=== PATIENT | male | born 1950 | race Caucasian/White ===

== ENCOUNTER 2019-04-24 10:37 | Inpatient (IN) | payer MEDICARE ==
--- NOTE | 2019-04-19 12:45 | NUR ---
Pt arrived in general good physical health for interview of scheduled procedure. Review of medical history and current medications. Procedural consent, pre-op orders, and Hibiclens bath education completed. All questions clarified and or answered where appropriate. pt verbalizes understanding to include day of procedure expectations. Contacted Adwoa @ [facility]. physicians office has already collected all blood specimens needed. lab draw cx for procedure- cgf
[~2019-04-24] VITALS: Ht 203.2 cm; Wt 120.2 kg
[2019-04-24] VITALS (16 sets, daily range): BP systolic 113–152; BP diastolic 67–91
--- OUTSIDE RECORDS SUMMARY | 2019-04-24 10:43 | XMS REPORT ---
Author Author [facility] Address Unknown Phone Unavailable Care Team Providers Care Salsa Dance Instructor Name Role Phone Unavailable Unavailable Payers Payer Name Policy Type Policy Number Effective Date Expiration Date Problems This patient has no known problems. Allergies, Adverse Reactions, Alerts This patient has no known allergies or adverse reactions. Medications This patient has no known medications.
[2019-04-24] MEDS ORDERED: DIPHENHYDRAMINE HCL 25 MG CAP ONE (11:00)
[2019-04-24] MEDS ORDERED: ALPRAZOLAM 0.5 MG TAB ONE (11:00)
--- NOTE | 2019-04-24 11:00 | NUR ---
pt in CCL 9, prepped for procedure. Alert oriented and appropriate, PERRLA, respirations even and unlabored to room air. Pulses x4 extremities equal and palpable, weak. Cap fill brisk < 3 sec. Skin warm and dry integrity appears intact in general. IV 20g started to left forearm x1 attempt and presents healthy w/o s/s of infiltration or complaint. Abdomen soft and supple. pt offered toileting, denies need to urinate or defecate. Personal affects with patient. Family not available. Pt verbalizes understanding of POC. Pre-Op Meds benadryl and xanax given. bed low and locked, side rails up x2 and call light at side. [place] [place]
[2019-04-24] MEDS ORDERED: HEPARIN SOD/SOD CHLORIDE 2,000 ML ONE (11:46)
[2019-04-24] MEDS ORDERED: LIDOCAINE HCL 2% LOCAL 20 ML VIAL ONE (11:46)
[2019-04-24] MEDS ORDERED: FENTANYL CITRATE/PF 100MCG/2 ML INJ ONE (11:46)
[2019-04-24] MEDS ORDERED: MIDAZOLAM HCL 2 MG/2 ML VIAL ONE (11:46)
[2019-04-24] MEDS ORDERED: SODIUM CHLORIDE 0.9% 1000ML 1,000 ML ONE ×2 (11:47→15:25)
[2019-04-24] MEDS ORDERED: IOPAMIDOL 370 MG/ML 200 ML INFUS..BTL INJ ONE ×2 (11:47→11:55)
[2019-04-24] MEDS ORDERED: BIVALRIUDIN 250 MG/VIAL VIAL IV ONE (12:19)
[2019-04-24] MEDS ORDERED: SODIUM CHLORIDE 0.9% 50ML 50 ML ONE (12:20)
[2019-04-24] MEDS ORDERED: ASPIRIN 325 MG TAB ONE (12:28)
[2019-04-24] MEDS ORDERED: PRASUGREL 10 MG TAB ONE (12:28)
--- NOTE | 2019-04-24 16:25 | NUR ---
PT RECEIVED FROM COP BREAKER. AAOX4. PT LYING ON BED. NO DISTRESS NOTED. EDUCATED PT ABOUT FALL PRECAUTIONS. CALL LIGHT WITH IN EASY REACH. INSTRUCTED PT TO USE CALL LIGHT FOR ALL THE NEEDS. PT VERBALIZED UNDERSTANDING. BED IS LOW AND LOCKED. SIDE RAILS X2. BED ALARM IS ON. PT DENIES NEEDS AT THIS TIME.
--- NOTE | 2019-04-24 17:30 | NUR ---
PAGED DR. ALVAREZ REGARDING PT MEDS AND DIET.
--- NOTE | 2019-04-24 18:15 | NUR ---
CONSENT SIGNED PER DR. ALVAREZ. PT CAN TAKE HOME MEDS PER THE
--- NOTE | 2019-04-24 18:30 | NUR ---
MED RECONCILIATION NOT COMPLETED SINCE PT DOESN'T KNOW THE MEDICINES HE TAKES. FAMILY MEMBER WILL BRING THE MEDS TONIGHT TO REVIEW PER THE PT.
--- NOTE | 2019-04-24 19:00 | NUR ---
BEDSIDE SHIFT REPORT GIVEN TO THE LATENT FINGERPRINT EXAMINER RN. PT DENIED FURTHER NEEDS.
--- NOTE | 2019-04-24 19:20 | NUR ---
RECEIVED PATIENT. PATIENT IS RESTING IN BED FLAT, S/P LEFT HEAR CATH, RIGHT GROIN DRESSING NOTED, DRY AND INTACT, NO S/S OF BLEEDING. PATIENT IS AAOX3. RESP EVEN AND UNLABORED. NO ACUTE DISTRESS NOTED. BED LOW/LOCKED. CONTINUE TO MONITOR CLOSELY
--- NOTE | 2019-04-24 21:05 | Operative Report ---
DATE OF PROCEDURE: 04/24/2019 SURGEON: Mathew Madison MD INDICATION: Coronary artery disease, abnormal stress test, congestive heart failure. PROCEDURES PERFORMED: 1. Left heart catheterization, selective coronary angiography. 2. Selective cannulation of 1 arterial and 3 venous bypass conduit. 3. PTCA and stent placement of the circumflex/ramus intermedius branch of the left coronary system. COMPLICATIONS: None. RECOMMENDATIONS: Staged intervention on the left main and ostial circumflex lesion, staged intervention on the right coronary artery with atherectomy, staged intervention for peripheral arterial disease. BLOOD LOSS: Minimal. Dual antiplatelet therapy for life. DESCRIPTION OF PROCEDURE: Access was obtained in the right femoral artery. A 6-Slovak sheath was placed. Coronary angiography demonstrated patent left main. Left anterior descending artery is occluded in its proximal portion. Ramus intermedius proximal 90% stenosis, circumflex ostial 80% to 90%, proximal 80% to 90% stenosis. Right coronary artery tandem 90% stenosis in its proximal midportion. Left internal mammary artery bypass to the left anterior descending artery is widely patent. Left subclavian artery stent was widely patent. Saphenous vein bypass with 3 stumps were identified and these were completely occluded. A decision was made to intervene on the ramus intermedius branch of the circumflex artery. The patient received Angiomax and oral Effient and aspirin for anticoagulation. The left main was cannulated using an XB 4.06-Slovak guiding catheter. A short run-through wire was advanced across the lesion. Predilatation with 2 mm balloon following which a single 2.25 x 16 mm Synergy stent was deployed at 18 atmospheres. Excellent end result, less than 10% residual stenosis. Adequate flow remained in the circumflex artery. The sheath was secured in place for removal under manual pressure. The patient was observed in the hospital overnight for staged intervention. Mathew Madison MD KSB/MODL /[id number]
[2019-04-25] VITALS (20 sets, daily range): BP systolic 85–167; BP diastolic 43–81
[2019-04-25] MEDS ORDERED: LOSARTAN POTASS25 MG PO (03:16)
[2019-04-25] MEDS ORDERED: CRESTOR10 MG PO (03:16)
[2019-04-25] MEDS ORDERED: METOPROLOL TART50 MG PO (03:16)
[2019-04-25] MEDS ORDERED: ENTRESTO 24 MG1 EACH PO (03:16)
[2019-04-25] MEDS ORDERED: NAPROXEN250 MG PO (03:19)
[2019-04-25] MEDS ORDERED: FUROSEMIDE40 MG PO (03:19)
--- NOTE | 2019-04-25 07:00 | NUR ---
BEDSIDE SHIFT REPORT RECEIVED FROM THE POWER PLANT ELECTRICIAN RN. EDUCATED PT ABOUT FALL PRECAUTIONS. CALL LIGHT WITH IN EASY REACH. INSTRUCTED PT TO USE CALL LIGHT FOR ALL THE NEEDS. PT VERBALIZED UNDERSTANDING. BED IS LOW AND LOCKED. SIDE RAILS X2. PT DENIES NEEDS AT THIS TIME.
[2019-04-25] MEDS ORDERED: MIDAZOLAM HCL 2 MG/2 ML VIAL ONE ×2 (08:32→09:11)
[2019-04-25] MEDS ORDERED: HEPARIN SOD (PORCINE) 1000 UNIT/ML 30ML ONE (08:32)
[2019-04-25] MEDS ORDERED: VERAPAMIL HCL 2.5 MG/ML 2 ML VIAL ONE (08:32)
--- NOTE | 2019-04-25 08:32 | NUR ---
PT OFF UNIT FOR PROCEDURE IN SAFE CONDITION. PT BLOOD SUGAR CHECKED. 152 NOTED.
[2019-04-25] MEDS ORDERED: LIDOCAINE HCL 2% LOCAL 20 ML VIAL ONE (08:33)
[2019-04-25] MEDS ORDERED: HEPARIN SOD/SOD CHLORIDE 2,000 ML ONE (08:33)
[2019-04-25] MEDS ORDERED: IOPAMIDOL 370 MG/ML 200 ML INFUS..BTL INJ ONE (08:33)
[2019-04-25] MEDS ORDERED: FENTANYL CITRATE/PF 100MCG/2 ML INJ ONE (08:33)
[2019-04-25] MEDS ORDERED: NITROGLYCERIN/D5W 200 MCG/ML 250 ML ONE (08:34)
[2019-04-25] MEDS ORDERED: SODIUM CHLORIDE 0.9% 1000ML 1,000 ML ONE (08:34)
[2019-04-25] MEDS ORDERED: SODIUM CHLORIDE 0.9% 50ML 50 ML ONE (08:35)
[2019-04-25] MEDS ORDERED: BIVALRIUDIN 250 MG/VIAL VIAL IV ONE (08:46)
[2019-04-25] MEDS ORDERED: PHENYLEPHRINE HCL 1% 10 MG/ML VIAL ONE (09:22)
[2019-04-25] MEDS ORDERED: SODIUM CHLORIDE 0.9% 100 ML ONE (09:23)
[2019-04-25] MEDS: SODIUM CHLORIDE 0.9% 1000ML 1,000 ML IV SCH ×2 (09:35→21:58)
[2019-04-25] MEDS ORDERED: PRASUGREL 10 MG TAB ONE (09:39)
[2019-04-25] MEDS ORDERED: ASPIRIN 325 MG TAB ONE (09:39)
[2019-04-25] MEDS ORDERED: ACETAMINOPHEN 325 MG TAB PO PRN (09:45)
[2019-04-25] MEDS ORDERED: HYDROCODONE/APAP 5MG-325MG TAB PO PRN (09:45)
[2019-04-25] MEDS ORDERED: ONDANSETRON HCL INJ 2MG/ML 2ML 2 MG/ML VIAL IV PRN (09:45)
[2019-04-25] MEDS ORDERED: MORPHINE SULFATE INJ 4 MG/ML INJ 1ML IV PRN (09:45)
--- NOTE | 2019-04-25 10:30 | NUR ---
CALL RECEIVED FROM ASSOCIATE PROGRAM MANAGER. PT TRANSFERRED TO ICU PER ASSOCIATE PROGRAM MANAGER.
--- NOTE | 2019-04-25 10:49 | Progress Note ---
DATE: 04/25/2019 Cardiology Progress Note SUBJECTIVE: Mr. Ray has no chest pain. His groin has healed well from his procedure yesterday. PHYSICAL EXAMINATION: VITAL SIGNS: Afebrile, heart rate 63, blood pressure 114/60, O2 sats 95%. CARDIOVASCULAR: Regular rhythm, systolic murmur. S3 gallop. LUNGS: Clear to auscultation bilaterally. ABDOMEN: Right groin is soft. EXTREMITIES: Pedal pulses are trace positive. LABORATORY DATA: Labs are pending. TELEMETRY: Shows paced rhythm. ASSESSMENT: 1. Unstable angina, status post ramus intermedius branch coronary intervention. 2. Chronic systolic heart failure. PLAN: Mr. Ray is being taken back to the cath laboratory technician for intervention in his left main and circumflex coronary artery. Risks, benefits, alternatives of the procedure were discussed with the patient. He is agreeable for the same. He will require ICU post procedure for monitoring. MD SHANNEN Urban/MERNA /[id number]
[2019-04-25 11:08] LABS: BASOPHILS % 0.5 % (0.0-1.0); EOSINOPHILS # (AUTO) 0.1 (0.0-0.4); EOSINOPHILS % 1.7 % (0.0-6.0); HEMATOCRIT 39.9 % (38.2-49.6); HEMOGLOBIN 13.1 g/dL (14.0-18.0); LYMPHOCYTES # (AUTO) 1.5 (1.0-3.2); LYMPHOCYTES % 19.8 % (18.0-39.1); MEAN CORPUSCULAR HGB CONC 32.8 g/dL (31-35); MEAN CORPUSCULAR VOLUME 91.5 fL (81-99); MONOCYTES # (AUTO) 0.6 (0.2-0.8); NEUTROPHILS # (AUTO) 5.3 (2.1-6.9); NEUTROPHILS % 69.7 % (38.7-80.0); PLATELET COUNT 213 x10e3/uL (140-360); RED BLOOD COUNT 4.36 x10e6/uL (4.3-5.7); RED CELL DISTRIBUTION WIDTH 12.7 % (11.7-14.4)
[2019-04-25 11:25] LABS: CREATININE, SERUM 1.5 mg/dL (0.72-1.25)
--- NOTE | 2019-04-25 12:15 | NUR ---
TRANSFER REPORT GIVEN TO ICU NURSE. PT IS STILL AT AIRPORT SECURITY SCREENER.
--- NOTE | 2019-04-25 12:50 | NUR ---
Report rec'd from Ena, Car Spotter. Patient to Room 191 at 1253, nauseated and vomiting. Zofran administered. Right femoral site is free of drainage and no signs of hematoma or bleeding.
[2019-04-25] MEDS ORDERED: ONDANSETRON HCL INJ 2MG/ML 2ML 2 MG/ML VIAL ONE (13:07)
[2019-04-25] MEDS: METOPROLOL TARTRATE 50 MG TAB PO SCH (16:18)
[2019-04-25] MEDS: VALSARTAN/SACUBITRIL 24MG/26MG 1 EA TAB PO SCH (16:18)
--- NOTE | 2019-04-25 16:37 | Operative Report ---
DATE OF PROCEDURE: 04/25/2019 SURGEON: Mathew Madison MD INDICATION: Coronary artery disease, unstable angina, congestive heart failure. PROCEDURES PERFORMED: 1. Left heart catheterization, selective coronary angiography. 2. PTCA and stent placement in the left main and left circumflex coronary artery. COMPLICATIONS: None. RECOMMENDATIONS: Dual antiplatelet therapy for life, staged intervention of the right coronary. DESCRIPTION OF PROCEDURE: Access obtained in the right femoral artery. A 6-Malawian sheath was placed. Angiomax was administered for anticoagulation. Oral Effient and aspirin was administered. Left main was cannulated using an XB 4.0, 6-Malawian guiding catheter. A short run-through wire was advanced across the 90% stenosis in the ostial circumflex and proximal circumflex into the distal vessel for support. Predilatation with 2 mm balloon following which 2 overlapping 2.5 x 16 and 3.5 x 12 mm Synergy stents were deployed. Both proximal stents were post dilated with a 3.75 mm balloon. Excellent end result, less than 10% residual stenosis, HANK-3 flow in the entire circumflex system. No complications. Wire and guide sheath were removed. Sheath secured in place for removal under manual pressure. The patient transferred to ICU in stable condition. MD SHANNEN Urban/MODL /[id number]
[2019-04-25] MEDS ORDERED: ZOLPIDEM TARTRATE 5 MG TAB PO PRN (21:00)
[2019-04-25] MEDS ORDERED: SIMVASTATIN 20 MG TAB PO SCH (21:00)
[2019-04-26] VITALS (23 sets, daily range): BP systolic 89–150; BP diastolic 49–87
[2019-04-26 05:21] LABS: BASOPHILS % 0.4 % (0.0-1.0); EOSINOPHILS # (AUTO) 0.2 (0.0-0.4); EOSINOPHILS % 2.3 % (0.0-6.0); HEMATOCRIT 36.4 % (38.2-49.6); LYMPHOCYTES # (AUTO) 2.1 (1.0-3.2); MEAN CORPUSCULAR HEMOGLOBIN 29.9 pg (28-32); MEAN CORPUSCULAR VOLUME 90.8 fL (81-99); MONOCYTES # (AUTO) 1.2 (0.2-0.8); MONOCYTES % 14.9 % (4.4-11.3); NEUTROPHILS # (AUTO) 4.8 (2.1-6.9); NEUTROPHILS % 57.2 % (38.7-80.0); PLATELET COUNT 198 x10e3/uL (140-360); RED BLOOD COUNT 4.01 x10e6/uL (4.3-5.7); RED CELL DISTRIBUTION WIDTH 12.6 % (11.7-14.4)
[2019-04-26 05:40] LABS: CALCIUM 8.4 mg/dL (8.4-10.2); CREATININE, SERUM 1.22 mg/dL (0.72-1.25)
[2019-04-26] MEDS: SODIUM CHLORIDE 0.9% 1000ML 1,000 ML IV SCH (05:59)
[2019-04-26] MEDS: VALSARTAN/SACUBITRIL 24MG/26MG 1 EA TAB PO SCH ×2 (08:28→17:28)
[2019-04-26] MEDS ORDERED: ASPIRIN 325 MG TAB PO SCH (09:00)
[2019-04-26] MEDS ORDERED: CLOPIDOGREL BISULFATE 75 MG TAB PO SCH (09:00)
[2019-04-26] MEDS: METOPROLOL TARTRATE 50 MG TAB PO SCH ×2 (11:00→17:28)
--- NOTE | 2019-04-26 12:03 | NUR ---
patient out of bed in chair since 0730am. no complaints. tolerating meals. no chest pain, sob or nausea. right groin site c,d,i. soft, nontender. + peripheal pulses.
[2019-04-26] MEDS ORDERED: ONDANSETRON HCL 4 MG ORAL DISINTEGRATING TAB PO PRN (17:15)
[2019-04-26] MEDS ORDERED: BRILINTA90 MG PO ×2 (17:33→17:37)
--- NOTE | 2019-04-26 17:56 | NUR ---
patient discharged with prescription for brilenta. home med instructions. p..iv removed. f/u with md next week. pt given stent card and instructed to keep in wallet. pt verbalized understanding of all discharge instructions. pt escorted to lobby of [facility] [place] with staff and grandson.. left with all personal belongings.
== END 2019-04-26 17:59 | disposition home or self-care (01) | DRG 247 ==
LOC: CATH LAB 10:37 → CATH LAB V 12:33 → MED/SURG2 16:24 → OBSVTOIN 04-25 09:35 → ICU 04-25 11:14
PROVIDERS: ADMIT Internal Medicine Interventional Cardiology; ATTEND Internal Medicine Interventional Cardiology
PROC: 027034Z Dilation of Coronary Artery, One Artery with Drug-eluting Intraluminal Device, Percutaneous Approach (ICD-10-PCS; principal; 2019-04-24)
PROC: B2131ZZ Fluoroscopy of Multiple Coronary Artery Bypass Grafts using Low Osmolar Contrast (ICD-10-PCS; 2019-04-24)
PROC: B2181ZZ Fluoroscopy of Left Internal Mammary Bypass Graft using Low Osmolar Contrast (ICD-10-PCS; 2019-04-24)
PROC: 027135Z Dilation of Coronary Artery, Two Arteries with Two Drug-eluting Intraluminal Devices, Percutaneous Approach (ICD-10-PCS; 2019-04-25)
DX: I25.110 Atherosclerotic heart disease of native coronary artery with unstable angina pectoris (principal); I25.810 Atherosclerosis of coronary artery bypass graft(s) without angina pectoris; I50.22 Chronic systolic (congestive) heart failure; I73.9 Peripheral vascular disease, unspecified; I25.2 Old myocardial infarction; M19.90 Unspecified osteoarthritis, unspecified site; E11.69 Type 2 diabetes mellitus with other specified complication; I11.0 Hypertensive heart disease with heart failure; Z79.899 Other long term (current) drug therapy
CPT/HCPCS: 36415; 80048; 82948; 85025; 92928; 93005; 93455; 99152; 99153; C1725; C1769; C1874; G0378; J0583; J1644; J2001; J2250; J2370; J2405; J3010; J7030; J7050; Q9967

== ENCOUNTER 2020-01-11 14:13 | Inpatient (IN) | payer MEDICARE, OTHER ==
[~2020-01-11] VITALS: Ht 203.2 cm; Wt 117.6 kg
[~2020-01-11 14:13] MED LIST: BRILINTA90 MG PO; CRESTOR10 MG PO; ENTRESTO 24 MG1 EACH PO; FUROSEMIDE40 MG PO; LOSARTAN POTASS25 MG PO; METOPROLOL TART50 MG PO; NAPROXEN250 MG PO
--- NOTE | 2020-01-11 14:16 | Emergency Department Note ---
History of Present Illnes History of Present Illness Chief Complaint: SOB, CARIAS History of Present Illness This is a 69 year old male, with a history of hypertension, IDDM, CHF, ASCVD status post [place], remote CABG x4 with stent placement post CABG, and AICD/pacemaker placement who presents with a three-week history of progressively worsening SOB and dyspnea on exertion. Patient denies any chest pain, but does have some tightness when he is feeling short of breath. He states that he's been sleeping upright in a chair for the last 1-1/2 weeks, and denies any PND. He has also had some abdominal bloating. He denies any dizziness, nausea, vomiting, or diaphoresis. Patient is also not had any fever, chills, cough, or upper respiratory symptoms. He had a negative Covid test yesterday. Patient's edge cutter Dr. Gaitan and he states that he has stress test scheduled for sometime next week. Historian: Patient Arrival Mode: Car Grades 1 Through 5 Teacher Required: No Onset (how long ago): week(s) (3) Location: chest Quality: sob, CARIAS Radiation: Reports non-radiation Severity: moderate Onset quality: gradual Duration (how long): week(s) (3) Timing of current episode: constant Progression: worsening Chronicity: recurrent Context: Denies recent illness, Denies trauma/injury, Denies hx of DVT/PE, Denies non-compliance w/ medications (pt denies missing any medications) Relieving factors: none Exacerbating factors: movement Associated symptoms: Reports shortness of breath, Reports weakness; Denies chest pain, Denies cough, Denies fever/chills, Denies malaise, Denies nausea/vomiting Treatments prior to arrival: none Risk factors: ASCVD s/p [place], CABG and coronary artery stent placement Past Medical/Family History Physician Review I have reviewed the patient's past medical and family history. Any updates have been documented here. Past Medical History Recent Fever: No Clinical Suspicion of Infectio: No New/Unexplained Change in Ment: No Past Medical History: Hypertension, Diabetes (IDDM, poorly controlled.), CHF, AZ, Hyperlipedemia Past Surgical History: CABG (x4, 14 years ago;) Social History Smoking Cessation: Never Smoker Alcohol Use: None Any Illegal Drug Use: No TB Exposure/Symptoms: No Physically hurt or threatened: No Family History Family history of heart diseas: Yes Other Any Pre-Existing Lines (PICC,: No Is patient up to date on immun: Yes Review of Systems Review of Systems Constitutional: Denies chills, Denies fever EENTM: Reports no symptoms Cardiovascular: Reports edema (mild pedal edema;); Denies chest pain, Denies palpitations Respiratory: Reports no symptoms Gastrointestinal: Reports other (Bloating); Denies abdominal pain, Denies nausea, Denies vomiting Genitourinary: Reports no symptoms Musculoskeletal: Reports no symptoms Integumentary: Reports no symptoms; Denies change in color, Denies rash Neurological: Denies headache, Denies numbness, Denies weakness Psychological: Reports no symptoms Endocrine: Reports no symptoms Hematological/Lymphatic: Reports easy bleeding (due to meds;), Reports easy bruising Review of other systems: All other systems negative Physical Exam Related Data Allergies: Coded Allergies: No Known Allergies (Unverified , 04/25/19) Vital signs reviewed: Yes Physical Exam CONSTITUTIONAL Constitutional: Present well-developed, Present well-nourished; Absent distressed, Absent ill appearing HENT HENT: Present normocephalic, Present atraumatic, Present oropharynx clear/moist, Present nose normal, Present dental caries; Absent rhinorrhea, Absent erythema HENT L/R: Present left ext ear normal, Present right ext ear normal EYES Eyes: Reports PERRL, Reports conjunctivae normal NECK Neck: Present ROM normal; Absent cervical adenopathy PULMONARY Pulmonary: Present effort normal, Present other (bibasilar, diminished breath sounds) CARDIOVASCULAR Cardiovascular: Present regular rhythm, Present heart sounds normal, Present capillary refill normal, Present normal rate GASTROINTESTINAL Abdominal: Present soft, Present nontender, Present bowel sounds normal GENITOURINARY Genitourinary: Present exam deferred SKIN Skin: Present warm, Present dry MUSCULOSKELETAL Musculoskeletal: Present ROM normal NEUROLOGICAL Neurological: Present alert, Present oriented x 3, Present no gross motor or sensory deficits PSYCHOLOGICAL Psychological: Present mood/affect normal, Present judgement normal Results Laboratory Lab results reviewed: Yes Laboratory comments UA - glu = 500 mg/dl; CBC - nl; normal CMP - nl except gluc = 237, Cr = 1.4, BUN = 24; BNP - 1470; Cardiacs - CKMB = 5.4, oscar or other all use well= 182, Trop - nl; D-dimer - nl; Imaging Imaging results reviewed: Yes Imaging Comments [place] [id number] Patient Name: MRAYLIN FINLEY MR #: [id number] : 1950 Age/Sex: 69/M Req #: [id number] Adm Physician: Ordered by: JELANI MATHEW MD Report #: [id number] Location: [facility] Room/Bed: Procedure: [id number] HOPD/CXR 2 VIEW - [facility] Exam Date: 01/11/20 Exam Time: 1528 REPORT STATUS: Signed Exam: CXR 2 VIEW - HOPD Date: 01/11/2020 3:51 PM INDICATION: ^sob ^[id number] ^[id number] Comparison: None FINDINGS: Lines/Tubes:Right chest wall triple lead pacemaker is noted. Lungs:Moderate left and small right pleural effusions are noted with adjacent atelectasis. Negative for pneumothorax. Heart/Mediastinum:Cardia mediastinal silhouette is enlarged. Central vascular congestion is noted. Bones/Soft Tissues: No acute osseous abnormality. Upper abdomen: Unremarkable. IMPRESSION: Cardiomegaly, central vascular congestion with moderate left and small right pleural effusions. Findings are most likely related to fluid overload/pulmonary edema. Superimposed infection at the left lung base is difficult to exclude. Signed by: Rl Tejada MD on 01/11/2020 3:53 PM Dictated By: RL TEJADA MD 53 Transcribed By: JACQUELINE on 01/11/201552 COPY TO: JELANI MATHEW MD~ Procedures 12 Lead ECG Interpretation ECG Interpretation : ECG: ECG 1 Date: Jan 11, 2020 Time: 14:19 Prior ECG tracings: not available for review Rhythm: paced Rate: normal BPM: 68 QRS axis: left ST segments normal: Yes T waves normal: No T wave inversion: aVL, V2 Other findings: prolonged QTc interval Q waves: II, III, aVF, V5, V6 Clinical Impression: abnormal ECG Assessment & Plan Medical Decision Making [facility] 14:45 - patient discussed with patient's PEEP CP, Dr. Del Cid, who was agreeable to admit admitting patient to telemetry for treatment of acute exacerbation of CHF, monitor serial cardiac enzymes, and further evaluate possible cardiac ischemia. We will consult Dr. Madison, patient's edge cutter on admission. Patient received a dose of Lasix 20 mg IV in the ED, without significant urine output, prior to transfer. Patient is agreeable to admission, and updated patient's via speakerphone, while discussing results with patient. 16:10 - Dr. Madison's office was contacted, but unable to speak to anyone on the phone for consultation. The consult was entered into the admitting orders. Assessment & Plan Final Impression: (1) Acute exacerbation of CHF (congestive heart failure) (2) Dyspnea on exertion (3) Hyperglycemia due to diabetes mellitus (4) Hypertension Depart Disposition: ADMITTED Home Meds Reported Medications Ticagrelor (BRILINTA) 90 Mg Tablet, 90 MG PO BID, #60 5 Refills 04/26/19 Ticagrelor (BRILINTA) 90 Mg Tablet, 90 MG PO BID, #60 5 Refills 04/26/19 Naproxen (NAPROXEN) 250 Mg Tablet, 250 MG PO Q8H PRN for BREAKTHROUGH PAIN, TAB 04/25/19 Furosemide (FUROSEMIDE) 40 Mg Tablet, 40 MG PO Daily, #30 TAB 04/25/19 Rosuvastatin Calcium (CRESTOR) 10 Mg Tab, 20 MG PO DAILY THERAPEUTICALLY SUBSTITUTED WITH SIMVASTATIN 40MG 04/25/19 Sacubitril/Valsartan (Entresto 24 mg-26 mg Tablet) 1 Each Tablet, 1 TAB PO BID 04/25/19 Losartan Potassium (LOSARTAN POTASSIUM) 25 Mg Tablet, 50 MG PO BID 04/25/19 Metoprolol Tartrate (METOPROLOL TARTRATE) 50 Mg Tablet, 50 MG PO BID, TAB 04/25/19 JELANI MATHEW MD Jan 11, 2020 14:16
[2020-01-11] MEDS ORDERED: FUROSEMIDE INJ 10 MG/ML 2 ML VIAL IV ONE (15:15)
[2020-01-11] MEDS ORDERED: ASPIRIN 81 MG CHEW TAB PO ONE (15:30)
[2020-01-11] MEDS ORDERED: SODIUM CHLORIDE FLUSH 10 ML SYR INJ PRN (15:30)
[2020-01-11] MEDS ORDERED: ONDANSETRON HCL INJ 2MG/ML 2ML 2 MG/ML VIAL IV PRN (15:30)
--- OUTSIDE RECORDS SUMMARY | 2020-01-11 15:30 | XMS REPORT | Continuity of Care Document ---
Author Author [facility] t Organization [facility] Address [address] [place] [address] Phone Unavailable Care Team Providers Care Ruling Machine Feeder Name Role Phone NO, PCP PCP Unavailable Payers Payer Name Policy Type Policy Number Effective Date Expiration Date Marshall cole [facility] [id number] 2018 00:00:00 [facility] Medicare A & B [id number] 2016 00:00:00 [facility] Problems This patient has no known problems. Allergies, Adverse Reactions, Alerts This patient has no known allergies or adverse reactions. Medications Ordered Medication Name Filled Medication Name Start Date Stop Da te Current Medication? Ordering Clinician Indication Dosage Frequency Signature (SIG) Comments Components Source Furosemide 40 Mg Tablet Furosemide 40 Mg Tablet Yes 40 Daily [facility] Losartan Potassium 25 Mg Tablet Losartan Potassium 25 Mg Tablet Yes 50 Twice A Day [facility] Metoprolol Tartrate 50 Mg Tablet Metoprolol Tartrate 50 Mg Tablet Yes 50 Twice A Day [facility] Naproxen 250 Mg Tablet Naproxen 250 Mg Tablet Yes 250 Every 8 Hours as needed for Breakthrough Pain [facility] Rosuvastatin Calcium (Crestor) 10 Mg Tab Rosuvastatin Calcium (Crestor) 10 Mg Tab Yes 20 Daily [facility] Sacubitril/Valsartan (Entresto 24 Mg-26 Mg Tablet) 1 E ach Tablet Sacubitril/Valsartan (Entresto 24 Mg-26 Mg Tablet) 1 Each Tablet Yes 1 Twice A Day [facility] Ticagrelor (Brilinta) 90 Mg Tablet Ticagrelor (Brilinta) 90 Mg Tablet Yes 90 Twice A Day [facility] Ticagrelor (Brilinta) 90 Mg Tablet Ticagrelor (Brilinta) 90 Mg Tablet Yes 90 Twice A Day [facility] Procedures This patient has no known procedures. Encounters Start Date/Time End Date/Time Encounter Type Admission Type [facility] Care Department Encounter ID Source 2019-04-25 09:35:00 2019-04-26 17:59:00 Discharged Inpatient [facility] [id number] [facility] Results Test Description Test Time Test Comments Results Result Comments Source Bedside Glucose 2019-04-26 15:31:00 Test Item Bedside Glucose (test code = 54404-5) 197 70-120 H Meter ID: [id number] [facility] Hospitalodium Level 2019-04-26 05:44:00* Test Item Value Reference Range Interpretation Comments Sodium Level (test code = 2951-2) 137 136-145 [facility] ClinicsPotassium Mwteu7980-51-24 05:44:00* Test Item Value Reference Range Interpretation Comments Potassium Level (test code = 2823-3) 4.0 3.5-5.1 [facility] ClinicsChloride Knqyh5369-08-21 05:44:00* Test Item Value Reference Range Interpretation Comments Chloride Level (test code = 2075-0) 107 98-107 [facility] ClinicsCarbon Dioxide Wfqcu0771-50-09 05:44:00* Test Item Value Reference Range Interpretation Comments Carbon Dioxide Level (test code = 2028-9) 21 22-29 L [facility] ClinicsAnion [id number] 05:44:00* Test Item Value Reference Range Interpretation Comments Anion Gap (test code = 94980-5) 13.0 8-16 [facility] ClinicsBlood Urea Uwwrkgue9814-23-87 05:44:00* Test Item Value Reference Range Interpretation Comments Blood Urea Nitrogen (test code = 3094-0) 19 7-26 [facility] ClinicsCreatinine2019-12-04 05:44:00* Test Item Value Reference Range Interpretation Comments Creatinine (test code = 2160-0) 1.22 0.72-1.25 [facility] ClinicsBUN/Creatinine Hlhqe2418-72-53 05:44:00* Test Item Value Reference Range Interpretation Comments BUN/Creatinine Ratio (test code = 3097-3) 16 6-25 [facility] ClinicsEstimat Glomerular Filtration Rate 2019-04-26 05:44:00* Test Item Value Reference Range Interpretation Comments Estimat Glomerular Filtration Rate (test code = 441787859) 59 >60 L Ranges were taken from the National Kidney Disease Education Program and the [facility] Kidney Foundation literature.Reference ranges:60 or greater: Afrdrn00-28 ( for 3 consecutive months): Chronic kidney disease 15 or less: Kidney failureEast Houston Hospital and ClinicsGlucose Wtkan4948-15-82 05:44:00* Test Item Value Reference Range Interpretation Comments Glucose Level (test code = YNX4454) 163 74-118 H [facility] ClinicsCalcium Wgqip3079-00-07 05:44:00* Test Item Value Reference Range Interpretation Comments Calcium Level (test code = 80876-4) 8.4 8.4-10.2 [facility] ClinicsWhite Blood Aywvc3185-98-28 05:30:00* Test Item Value Reference Range Interpretation Comments White Blood Count (test code = 6690-2) 8.31 4.8-10.8 [facility] ClinicsRed Blood Ntqwb5256-44-20 05:30:00* Test Item Value Reference Range Interpretation Comments Red Blood Count (test code = 789-8) 4.01 4.3-5.7 L [facility] ClinicsHemoglobin2019-12-04 05:30:00* Test Item Value Reference Range Interpretation Comments Hemoglobin (test code = 66961-8) 12.0 14.0-18.0 L [facility] ClinicsHematocrit2019-12-04 05:30:00* Test Item Value Reference Range Interpretation Comments Hematocrit (test code = 4544-3) 36.4 38.2-49.6 L [facility] ClinicsMean Corpuscular Pvmxws7346-34-71 05:30:00* Test Item Value Reference Range Interpretation Comments Mean Corpuscular Volume (test code = 787-2) 90.8 81-99 [facility] ClinicsMean Corpuscular Rpeatrpdyw1322-75-32 05:30:00* Test Item Value Reference Range Interpretation Comments Mean Corpuscular Hemoglobin (test code = 785-6) 29.9 28-32 [facility] ClinicsMean Corpuscular Hemoglobin Concent 2019-04-26 05:30:00* Test Item Value Reference Range Interpretation Comments Mean Corpuscular Hemoglobin Concent (test code = 786-4) 33.0 31-35 [facility] ClinicsRed Cell Distribution Pjqid5210-81-28 05:30:00* Test Item Value Reference Range Interpretation Comments Red Cell Distribution Width (test code = 45912-7) 12.6 11.7 -14.4 [facility] ClinicsPlatelet Ritqg4137-14-84 05:30:00* Test Item Value Reference Range Interpretation Comments Platelet Count (test code = 777-3) 198 140-360 [facility] ClinicsNeutrophils (%) (Auto)2019-04-26 05:30:00 * Test Item Value Reference Range Interpretation Comments Neutrophils (%) (Auto) (test code = 29314-6) 57.2 38.7-80.0 [facility] ClinicsLymphocytes (%) (Auto)2019-04-26 05:30:00 * Test Item Value Reference Range Interpretation Comments Lymphocytes (%) (Auto) (test code = 736-9) 25.0 18.0-39.1 [facility] ClinicsMonocytes (%) (Auto)2019-04-26 05:30:00* Test Item Value Reference Range Interpretation Comments Monocytes (%) (Auto) (test code = 5905-5) 14.9 4.4-11.3 H [facility] ClinicsEosinophils (%) (Auto)2019-04-26 05:30:00 * Test Item Value Reference Range Interpretation Comments Eosinophils (%) (Auto) (test code = 713-8) 2.3 0.0-6.0 [facility] ClinicsBasophils (%) (Auto)2019-04-26 05:30:00* Test Item Value Reference Range Interpretation Comments Basophils (%) (Auto) (test code = 706-2) 0.4 0.0-1.0 [facility] ClinicsIM GRANULOCYTES %2019-04-26 05:30:00* Test Item Value Reference Range Interpretation Comments IM GRANULOCYTES % (test code = IM GRANULOCYTES %) 0.2 0.0- 1.0 [facility] ClinicsNeutrophils # (Auto)2019-04-26 05:30:00* Test Item Value Reference Range Interpretation Comments Neutrophils # (Auto) (test code = 751-8) 4.8 2.1-6.9 [facility] ClinicsLymphocytes # (Auto)2019-04-26 05:30:00* Test Item Value Reference Range Interpretation Comments Lymphocytes # (Auto) (test code = 27258-7) 2.1 1.0-3.2 [facility] ClinicsMonocytes # (Auto)2019-04-26 05:30:00* Test Item Value Reference Range Interpretation Comments Monocytes # (Auto) (test code = 742-7) 1.2 0.2-0.8 H [facility] ClinicsEosinophils # (Auto)2019-04-26 05:30:00* Test Item Value Reference Range Interpretation Comments Eosinophils # (Auto) (test code = 711-2) 0.2 0.0-0.4 [facility] ClinicsBasophils # (Auto)2019-04-26 05:30:00* Test Item Value Reference Range Interpretation Comments Basophils # (Auto) (test code = 704-7) 0.0 0.0-0.1 [facility] ClinicsAbsolute Immature Granulocyte (auto 2019-04-26 05:30:00* Test Item Value Reference Range Interpretation Comments Absolute Immature Granulocyte (auto (halie t code = Absolute Immature Granulocyte (auto) 0.02 0-0.1 [facility]
--- NOTE | 2020-01-11 15:56 | Diagnostic Imaging Report ---
Exam: CXR 2 VIEW - HOPD Date: 01/11/2020 3:51 PM INDICATION: ^sob ^[id number] ^[id number] Comparison: None FINDINGS: Lines/Tubes:Right chest wall triple lead pacemaker is noted. Lungs:Moderate left and small right pleural effusions are noted with adjacent atelectasis. Negative for pneumothorax. Heart/Mediastinum:Cardia mediastinal silhouette is enlarged. Central vascular congestion is noted. Bones/Soft Tissues: No acute osseous abnormality. Upper abdomen: Unremarkable. IMPRESSION: Cardiomegaly, central vascular congestion with moderate left and small right pleural effusions. Findings are most likely related to fluid overload/pulmonary edema. Superimposed infection at the left lung base is difficult to exclude. Signed by: Ezekiel Tejada MD on 01/11/2020 3:53 PM
--- OUTSIDE RECORDS SUMMARY | 2020-01-11 16:01 | XMS REPORT | Continuity of Care Document ---
Author Author [facility] t Organization [facility] Address [address] [place] [address] Phone Unavailable Care Team Providers Care Inker Name Role Phone NO, PCP PCP Unavailable Mariella MATHEW Attphys Unavailable ANTONIOCAROLYN Admphys Unavailable Payers Payer Name Policy Type Policy Number Effective Date Expiration Date Marshall cole [facility] [id number] 2018 00:00:00 [facility] Medicare A & B [id number] 2016 00:00:00 [facility] Problems This patient has no known problems. Allergies, Adverse Reactions, Alerts This patient has no known allergies or adverse reactions. Medications Ordered Medication Name Filled Medication Name Start Date Stop Da te Current Medication? Ordering Clinician Indication Dosage Frequency Signature (SIG) Comments Components Source Furosemide 40 Mg Tablet Furosemide 40 Mg Tablet Yes 40 Daily [facility] Losartan Potassium 25 Mg Tablet Losartan Potassium 25 Mg Tablet Yes 50 Twice A Day [facility] Metoprolol Tartrate 50 Mg Tablet Metoprolol Tartrate 50 Mg Tablet Yes 50 Twice A Day [facility] Naproxen 250 Mg Tablet Naproxen 250 Mg Tablet Yes 250 Every 8 Hours as needed for Breakthrough Pain [facility] Rosuvastatin Calcium (Crestor) 10 Mg Tab Rosuvastatin Calcium (Crestor) 10 Mg Tab Yes 20 Daily [facility] Sacubitril/Valsartan (Entresto 24 Mg-26 Mg Tablet) 1 E ach Tablet Sacubitril/Valsartan (Entresto 24 Mg-26 Mg Tablet) 1 Each Tablet Yes 1 Twice A Day [facility] Ticagrelor (Brilinta) 90 Mg Tablet Ticagrelor (Brilinta) 90 Mg Tablet Yes 90 Twice A Day [facility] Ticagrelor (Brilinta) 90 Mg Tablet Ticagrelor (Brilinta) 90 Mg Tablet Yes 90 Twice A Day [facility] Procedures This patient has no known procedures. Encounters Start Date/Time End Date/Time Encounter Type [facility] Encounter ID Source 2019-04-25 09:35:00 2019-04-26 17:59:[address] [facility] [id number] [facility] Results Test Description Test Time Test Comments Results Result Comments Source CXR 2 VIEW - HOPD 2020-01-11 15:51:00 [place] [address] Patient Name: MARYLIN FINLEY MR #: [id number] : 1950 Age/Sex: 69/M Req #: [id number] Adm Physician: Ordered by: JELANI MATHEW MD Report #: [id number] Location: [facility] Room/Bed: Procedure: [id number] HOPD/CXR 2 VIEW - HOPD Exam Date: 01/11/20 Exam Time: 152 REPORT STATUS: Signed Exam: CXR 2 VIEW - HOPD Date: 01/11/2020 3:51 PM INDICATION: sob [id number] Comparison: None FINDINGS: Lines/Tubes:Right chest wall triple lead pacemaker is noted. Lungs:Moderate left and small right pleural effusions are noted with adjacent atelectasis. Negative for pneumothorax. Heart/Mediastinum:Cardia mediastinal silhouette is enlarged. Central vascular congestion is noted. Bones/Soft Tissues: No acute osseous abnormality. Upper abdomen: Unremarkable. IMPRESSION: Cardiomegaly, central vascular congestion with moderate left and small right pleural effusions. Findings are most likely related to fluid overload/pulmonary edema. Superimposed infection at the left lung base is difficult to exclude. Signed by: Rl Tejada MD on 01/11/2020 3:53 PM Dictated By: RL TEJADA MD 53 Transcribed By: JACQUELINE on 01/11/201552 COPY TO: JELANI MATHEW MD Bedside Glucose 2019-04-26 15:31:00 Test Item Bedside Glucose (test code = 84116-1) 197 70-120 H Meter ID: [id number] Methodist Sugar Land Hospitalodium Level 2019-04-26 05:44:00* Test Item Value Reference Range Interpretation Comments Sodium Level (test code = 2951-2) 137 136-145 [facility] HospitalPotassium Xvyjh7529-72-34 05:44:00* Test Item Value Reference Range Interpretation Comments Potassium Level (test code = 2823-3) 4.0 3.5-5.1 [facility] HospitalChloride [id number] 05:44:00* Test Item Value Reference Range Interpretation Comments Chloride Level (test code = 2075-0) 107 98-107 [facility] HospitalCarbon Dioxide Tiawp8148-31-58 05:44:00* Test Item Value Reference Range Interpretation Comments Carbon Dioxide Level (test code = 2028-9) 21 22-29 L [facility] HospitalAnion [id number] 05:44:00* Test Item Value Reference Range Interpretation Comments Anion Gap (test code = 77865-2) 13.0 8-16 [facility] HospitalBlood Urea Wqtwmgqy8343-72-75 05:44:00* Test Item Value Reference Range Interpretation Comments Blood Urea Nitrogen (test code = 3094-0) 19 7-26 [facility] HospitalCreatinine2019-12-04 05:44:00* Test Item Value Reference Range Interpretation Comments Creatinine (test code = 2160-0) 1.22 0.72-1.25 [facility] HospitalBUN/Creatinine Kxnwf3020-86-69 05:44:00* Test Item Value Reference Range Interpretation Comments BUN/Creatinine Ratio (test code = 3097-3) 16 6-25 [facility] HospitalEstimat Glomerular Filtration Rate 2019-04-26 05:44:00* Test Item Value Reference Range Interpretation Comments Estimat Glomerular Filtration Rate (test code = 169500439) 59 >60 L Ranges were taken from the National Kidney Disease Education Program and the [facility] Kidney Foundation literature.Reference ranges:60 or greater: Jhwhig46-81 ( for 3 consecutive months): Chronic kidney disease 15 or less: Kidney failureEl Paso Children's HospitalGlucose Jucgu8690-19-90 05:44:00* Test Item Value Reference Range Interpretation Comments Glucose Level (test code = OZF7192) 163 74-118 H [facility] HospitalCalcium Xwqve0203-24-73 05:44:00* Test Item Value Reference Range Interpretation Comments Calcium Level (test code = 55356-7) 8.4 8.4-10.2 [facility] HospitalWhite Blood Jrbzq5987-12-74 05:30:00* Test Item Value Reference Range Interpretation Comments White Blood Count (test code = 6690-2) 8.31 4.8-10.8 [facility] HospitalRed Blood Tcwnx7493-53-04 05:30:00* Test Item Value Reference Range Interpretation Comments Red Blood Count (test code = 789-8) 4.01 4.3-5.7 L [facility] HospitalHemoglobin2019-12-04 05:30:00* Test Item Value Reference Range Interpretation Comments Hemoglobin (test code = 75463-5) 12.0 14.0-18.0 L [facility] HospitalHematocrit2019-12-04 05:30:00* Test Item Value Reference Range Interpretation Comments Hematocrit (test code = 4544-3) 36.4 38.2-49.6 L [facility] HospitalMean Corpuscular Bxojpj0113-29-78 05:30:00* Test Item Value Reference Range Interpretation Comments Mean Corpuscular Volume (test code = 787-2) 90.8 81-99 [facility] HospitalMean Corpuscular Utiwhgxxfd2690-39-99 05:30:00* Test Item Value Reference Range Interpretation Comments Mean Corpuscular Hemoglobin (test code = 785-6) 29.9 28-32 [facility] HospitalMean Corpuscular Hemoglobin Concent 2019-04-26 05:30:00* Test Item Value Reference Range Interpretation Comments Mean Corpuscular Hemoglobin Concent (test code = 786-4) 33.0 31-35 [facility] HospitalRed Cell Distribution Tmjtm3597-44-00 05:30:00* Test Item Value Reference Range Interpretation Comments Red Cell Distribution Width (test code = 56167-8) 12.6 11.7 -14.4 [facility] HospitalPlatelet Rmgtx5211-64-49 05:30:00* Test Item Value Reference Range Interpretation Comments Platelet Count (test code = 777-3) 198 140-360 [facility] HospitalNeutrophils (%) (Auto)2019-04-26 05:30:00 * Test Item Value Reference Range Interpretation Comments Neutrophils (%) (Auto) (test code = 23081-0) 57.2 38.7-80.0 [facility] HospitalLymphocytes (%) (Auto)2019-04-26 05:30:00 * Test Item Value Reference Range Interpretation Comments Lymphocytes (%) (Auto) (test code = 736-9) 25.0 18.0-39.1 [facility] HospitalMonocytes (%) (Auto)2019-04-26 05:30:00* Test Item Value Reference Range Interpretation Comments Monocytes (%) (Auto) (test code = 5905-5) 14.9 4.4-11.3 H [facility] HospitalEosinophils (%) (Auto)2019-04-26 05:30:00 * Test Item Value Reference Range Interpretation Comments Eosinophils (%) (Auto) (test code = 713-8) 2.3 0.0-6.0 [facility] HospitalBasophils (%) (Auto)2019-04-26 05:30:00* Test Item Value Reference Range Interpretation Comments Basophils (%) (Auto) (test code = 706-2) 0.4 0.0-1.0 [facility] HospitalIM GRANULOCYTES %2019-04-26 05:30:00* Test Item Value Reference Range Interpretation Comments IM GRANULOCYTES % (test code = IM GRANULOCYTES %) 0.2 0.0- 1.0 [facility] HospitalNeutrophils # (Auto)2019-04-26 05:30:00* Test Item Value Reference Range Interpretation Comments Neutrophils # (Auto) (test code = 751-8) 4.8 2.1-6.9 [facility] HospitalLymphocytes # (Auto)2019-04-26 05:30:00* Test Item Value Reference Range Interpretation Comments Lymphocytes # (Auto) (test code = 03442-2) 2.1 1.0-3.2 [facility] HospitalMonocytes # (Auto)2019-04-26 05:30:00* Test Item Value Reference Range Interpretation Comments Monocytes # (Auto) (test code = 742-7) 1.2 0.2-0.8 H [facility] HospitalEosinophils # (Auto)2019-04-26 05:30:00* Test Item Value Reference Range Interpretation Comments Eosinophils # (Auto) (test code = 711-2) 0.2 0.0-0.4 [facility] HospitalBasophils # (Auto)2019-04-26 05:30:00* Test Item Value Reference Range Interpretation Comments Basophils # (Auto) (test code = 704-7) 0.0 0.0-0.1 [facility] HospitalAbsolute Immature Granulocyte (auto 2019-04-26 05:30:00* Test Item Value Reference Range Interpretation Comments Absolute Immature Granulocyte (auto (halie t code = Absolute Immature Granulocyte (auto) 0.02 0-0.1 [facility]
--- NOTE | 2020-01-11 16:10 | NUR ---
called Dr. Madison's office regarding consult, no answer.
[2020-01-11] MEDS ORDERED: FUROSEMIDE INJ 10 MG/ML 4 ML VIAL ONE (17:10)
[2020-01-11 18:58] VITALS: BP 171/92
--- NOTE | 2020-01-11 19:10 | NUR ---
RECEIVED REPORT FROM PREVIOUS NURSE. CALL LIGHT WITHIN REACH. PATIENT IN BED. PATIENT ARRIVED TO THE UNIT AT 1856 [facility]. PATIENT IN NO PAIN OR DISTRESS.
[2020-01-11 19:20] VITALS: BP 171/92
--- NOTE | 2020-01-11 20:10 | NUR ---
CALLED DR. HERNANDEZ OFFICE AND TALKED TO DR. LE ABOUT THE PATIENT BEING ADMITTED TO ROOM 107. DR. LE SAID TO RESUME ALL HOME MEDICATION.
[2020-01-11 21:17] LABS: CREATINE KINASE MB 5.5 ng/mL (0-5.0)
[2020-01-11] MEDS: METOPROLOL TARTRATE 50 MG TAB PO SCH (21:46)
[2020-01-11] MEDS: INSULIN GLARGINE 100 UNITS/ML VIAL SQ SCH (21:46)
[2020-01-12] VITALS (7 sets, daily range): BP systolic 139–159; BP diastolic 88–98
--- NOTE | 2020-01-12 03:06 | History and Physical ---
CHIEF COMPLAINT: Shortness of breath. HISTORY OF PRESENT ILLNESS: Mr. Ray is a 69-year-old male, a regular patient of Dr. Hector Del Cid. The patient has a history of coronary artery disease, came in to the [facility] with complaints of shortness of breath, that is progressively getting worse for the last few days, mostly when he is laying flat. He feels better when he is sitting up. He has never smoked in his life. He has coronary artery disease and congestive heart failure. Questionable compliance with fluid restriction. He is better after he was given 1 dose of Lasix in the emergency room. He denies any chest pain, nausea, or vomiting. REVIEW OF SYSTEMS: GENERAL: Denies any fever or chills. HEAD: Denies any head trauma. ENT: Denies any earache. CVS: Denies any chest pain. RESPIRATORY: Shortness of breath. GI: Denies any nausea or vomiting. The rest of the review of systems is negative except as in HPI. PAST MEDICAL HISTORY: Hypertension, diabetes, and peripheral arterial disease. PAST SURGICAL HISTORY: CABG. FAMILY AND SOCIAL HISTORY: He does not smoke and does not drink. PHYSICAL EXAMINATION: VITAL SIGNS: Temperature 97.6, pulse of 67, blood pressure 171/92, respiratory rate of 18, and O2 saturation 98% to 100% on room air. HEENT: Head is atraumatic and normocephalic. NECK: Supple. CHEST: Decreased air entry bilaterally and crackles. HEART: S1 and S2 audible. ABDOMEN: Soft, nontender, and nondistended. Bowel sounds audible. EXTREMITIES: No pedal edema. NEUROLOGIC: Awake and alert. No focal neurologic deficit. LABORATORY DATA: Pending. CK-MB 5.50. COVID-19 testing is pending as well. Chest x-ray is showing increased congestion. ASSESSMENT AND PLAN: Mr. Ray is a 69-year-old male with congestive heart failure, came in with fluid overload. We will restart the patient on home medication. The patient is on 40 mg p.o. daily of Lasix, which will be changed to IV starting in the morning. The patient received 20 mg of IV dose in the emergency room. Oxygen as needed to keep the O2 saturation more than or equal to 92%. Cardiology consultation is being done. The patient is well known to Dr. Madison. We will consult him for further recommendation for his heart failure. Thank you for this consult. Further recommendation of heart failure. MD SARAVANAN Lopez/MERNA /[phone]
[2020-01-12 05:18] LABS: BASOPHILS % 0.7 % (0.0-1.0); EOSINOPHILS # (AUTO) 0.2 (0.0-0.4); EOSINOPHILS % 2.9 % (0.0-6.0); HEMATOCRIT 40.8 % (38.2-49.6); HEMOGLOBIN 13.2 g/dL (14.0-18.0); LYMPHOCYTES # (AUTO) 1.7 (1.0-3.2); LYMPHOCYTES % 29.5 % (18.0-39.1); MEAN CORPUSCULAR HEMOGLOBIN 29.9 pg (28-32); MEAN CORPUSCULAR HGB CONC 32.4 g/dL (31-35); MEAN CORPUSCULAR VOLUME 92.5 fL (81-99); MONOCYTES # (AUTO) 0.9 (0.2-0.8); MONOCYTES % 14.8 % (4.4-11.3); NEUTROPHILS # (AUTO) 3.1 (2.1-6.9); NEUTROPHILS % 51.8 % (38.7-80.0); PLATELET COUNT 222 x10e3/uL (140-360); RED BLOOD COUNT 4.41 x10e6/uL (4.3-5.7); RED CELL DISTRIBUTION WIDTH 13.2 % (11.7-14.4)
[2020-01-12 05:34] LABS: ANION GAP 15.6 mmol/L (8-16); CALCIUM 8.6 mg/dL (8.4-10.2); CREATININE, SERUM 1.36 mg/dL (0.72-1.25); POTASSIUM 3.6 mmol/L (3.5-5.1)
--- NOTE | 2020-01-12 07:00 | NUR ---
BEDSIDE SHIFT REPORT RECEIVED FROM CAR USHER RN. PT DENIES NEEDS AT THIS TIME.
--- NOTE | 2020-01-12 07:06 | NUR ---
GAVE BEDSIDE SHIFT REPORT TO ONCOMING NURSE. CALL LIGHT WITHIN REACH. PATIENT IN BED. HOURLY ROUNDING PERFORMED.
[2020-01-12 08:07] LABS: CREATINE KINASE MB 3.1 ng/mL (0-5.0)
[2020-01-12] MEDS ORDERED: FUROSEMIDE 40 MG TAB PO SCH (09:00)
[2020-01-12] MEDS ORDERED: METOPROLOL TARTRATE 50 MG TAB PO SCH (09:00)
[2020-01-12] MEDS ORDERED: FUROSEMIDE INJ 10 MG/ML 4 ML VIAL IV SCH (09:00)
[2020-01-12] MEDS: TICAGRELOR 90 MG TABLET PO SCH ×2 (09:20→16:41)
[2020-01-12] MEDS: LOSARTAN POTASSIUM 100 MG TAB PO SCH ×2 (09:21→16:41)
[2020-01-12] MEDS: METOPROLOL TARTRATE 50 MG TAB PO SCH ×2 (09:21→16:42)
[2020-01-12] MEDS: CRESTOR 10MG PO SCH (09:21)
[2020-01-12] MEDS: VALSARTAN/SACUBITRIL 24MG/26MG 1 EA TAB PO SCH ×2 (09:21→16:41)
[2020-01-12 11:31] LABS: INR 0.95; PROTHROMBIN TIME 13.2 seconds (11.9-14.5)
--- NOTE | 2020-01-12 11:45 | Diagnostic Imaging Report ---
Bilateral chest ultrasound History: Pleural effusion Technique/findings: Limited bilateral chest ultrasound was performed to evaluate for pleural effusion. Moderate left and trace right pleural effusions. IMPRESSION: Moderate left and trace right pleural effusions. Signed by: Filiberto Alejandra MD on 01/12/2020 11:42 AM
--- NOTE | 2020-01-12 13:29 | Diagnostic Imaging Report ---
EXAMINATION: CHEST SINGLE (PORTABLE) INDICATION: Postprocedural COMPARISON: Chest radiograph of 01/11/2020 FINDINGS: LINES/TUBES:Right chest AICD. EKG leads overlie the chest. LUNGS:The lungs are well-inflated. Bibasilar patchy opacities. PLEURA:Interval reduction in size of left pleural effusion, now small. Small right pleural effusion. No pneumothorax status post left thoracentesis. MEDIASTINUM:The cardiomediastinal silhouette appears unchanged in size and shape. BONES/SOFT TISSUES:No acute osseous injury. Sternotomy wires intact. ABDOMEN:No free air under the diaphragm. IMPRESSION: No pneumothorax status post left thoracentesis. Interval decrease in size of left pleural effusion, now small. Small right pleural effusion. Bibasilar patchy opacities, most likely subsegmental atelectasis. Signed by: Filiberto Alejandra MD on 01/12/2020 1:26 PM
--- NOTE | 2020-01-12 13:30 | Diagnostic Imaging Report ---
PROCEDURE: Ultrasound-guided thoracentesis Procedural Personnel Attending physician(s): Filiberto Alejandra MD Fellow physician(s): None Resident physician(s): None Advanced practice provider(s): None Pre-procedure diagnosis: Left pleural effusion Post-procedure diagnosis: Same Indication: Pleural effusion with compromised respiration Additional clinical history: None Complications: No immediate complications. IMPRESSION: Ultrasound-guided thoracentesis with drainage of 1200 mL of serous fluid. Plan: Resume care by clinical team. PROCEDURE SUMMARY: - Limited thoracic ultrasound - Ultrasound-guided thoracentesis - Additional procedure(s): None PROCEDURE DETAILS: Pre-procedure Consent: Informed consent for the procedure including risks, benefits and alternatives was obtained and time-out was performed prior to the procedure. Preparation: The site was prepared and draped using maximal sterile barrier technique including cutaneous antisepsis. Anesthesia/sedation Level of anesthesia/sedation: No sedation Anesthesia/sedation administered by: Not applicable Total intra-service sedation time (minutes): NA Limited thoracic ultrasound Limited thoracic ultrasound was performed using a curved transducer. A safe window for thoracentesis was identified. Left hemithorax findings: Moderate effusion Right hemithorax findings: Trace effusion Thoracentesis Local anesthesia was administered. The pleural space was accessed under real-time ultrasound guidance and fluid return confirmed position. The fluid was drained. The catheter was removed, and a sterile bandage was applied. Catheter placed: 5F Dianaeh Post-drainage hemithorax findings: Not performed Additional Details Additional description of procedure: None Equipment details: None Specimens removed: Pleural fluid Estimated blood loss (mL): Less than 10 Standardized report: [email or web address] Attestation Signer name: Filiberto Alejandra MD I attest that I was present for the entire procedure. I reviewed the stored images and agree with the report as written. Signed by: Filiberto Alejandra MD on 01/12/2020 1:27 PM
[2020-01-12] MEDS ORDERED: ONDANSETRON HCL 4 MG ORAL DISINTEGRATING TAB PO PRN (15:30)
[2020-01-12 15:40] LABS: CREATINE KINASE MB 3.3 ng/mL (0-5.0)
[2020-01-12] MEDS ORDERED: TICAGRELOR 90 MG TABLET PO SCH (18:00)
[2020-01-12] MEDS: FUROSEMIDE INJ 10 MG/ML 4 ML VIAL IV SCH (18:02)
[2020-01-12] MEDS: INSULIN GLARGINE 100 UNITS/ML VIAL SQ SCH (22:40)
[2020-01-13] VITALS (7 sets, daily range): BP systolic 108–145; BP diastolic 79–88
--- NOTE | 2020-01-13 00:26 | Consultation ---
DATE OF CONSULTATION: Cardiology Consultation HISTORY OF PRESENT ILLNESS: This is a 69-year-old male with a history of chronic systolic congestive heart failure, hypertension, hyperlipidemia, diabetes mellitus, presence of implantable cardioverter-defibrillator; coronary artery disease, status post coronary bypass graft surgery and percutaneous coronary intervention, presented to the emergency room, progressively worsening shortness of breath and dyspnea. The patient states that his symptoms have been progressively worsening of the last 3 weeks, associated with orthopnea, also associated with lower extremity swelling, also reports an ongoing cough as well. The patient denies any precordial pain or chest pain. No palpitations or ICD defibrillations. REVIEW OF SYSTEMS: A 12-point review of system was conducted, is negative as above in the HPI. PAST MEDICAL HISTORY: As stated above in the HPI. PAST SURGICAL HISTORY: As stated above in the HPI. PAST FAMILY HISTORY: Noncontributory to current illness. ALLERGIES: NO KNOWN DRUG ALLERGIES. MEDICATIONS: See medication reconciliation form. SOCIAL HISTORY: No illicit drug, alcohol, or tobacco use. PHYSICAL EXAMINATION: VITAL SIGNS: Temperature is 97.5, heart rate 60, respirations 20, blood pressure is 179/93, and ox saturation 100% on room air. GENERAL: Well appearing, well built, in no apparent distress. Alert and oriented x3. HEAD: Normocephalic and atraumatic. EYES: Extraocular muscles intact. Conjunctivae clear. NECK: No JVD. No bruits. CARDIOVASCULAR: Regular rate and rhythm. No murmurs. LUNGS: Diminished breath sounds at bases. ABDOMEN: Soft, nontender, nondistended. EXTREMITIES: Trace edema. VASCULAR: Diminished pulses. SKIN: Warm, dry, intact. NEUROLOGIC: No focal deficits noted. LABORATORY DATA: Reviewed. Hemoglobin 13.2. Creatinine 1.36. Troponin negative x3. Chest x-ray shows cardiomegaly and central vascular congestion with bilateral pleural effusions. IMPRESSION: 1. Vwrxg-sl-wthrywi systolic congestive heart failure. 2. Coronary artery disease, status post coronary artery bypass graft surgery and percutaneous coronary intervention. 3. Pleural effusion, status post thoracentesis. 4. Hypertension. 5. Hyperlipidemia. 6. Diabetes mellitus. 7. Presence of implantable cardioverter defibrillator. RECOMMENDATIONS: The patient has ycysa-fh-iwmlxgl heart failure. We will continue Lasix, however, we will increase this to 40 mg IV q.12 hours. Continue metoprolol, valsartan, Crestor, and clopidogrel. Discontinue his losartan. No need to be on 2 ARBs. We will continue to follow along with you. DO VICENTE Abreu/MERNA /[id number]
[2020-01-13] MEDS: FUROSEMIDE INJ 10 MG/ML 4 ML VIAL IV SCH ×2 (05:48→17:13)
[2020-01-13] MEDS: VALSARTAN/SACUBITRIL 24MG/26MG 1 EA TAB PO SCH ×2 (08:25→17:13)
[2020-01-13] MEDS: CRESTOR 10MG PO SCH (08:25)
[2020-01-13] MEDS: TICAGRELOR 90 MG TABLET PO SCH ×2 (08:25→17:13)
[2020-01-13] MEDS: METOPROLOL TARTRATE 50 MG TAB PO SCH ×2 (08:25→17:14)
[2020-01-13] MEDS ORDERED: INSULIN LISPRO 100 UNIT/1 ML 3ML VIAL SQ SCH (16:30)
[2020-01-13] MEDS: INSULIN LISPRO 100 UNIT/1 ML 3ML VIAL SQ SCH ×3 (16:34→21:00)
--- NOTE | 2020-01-13 16:37 | NUR ---
Nutrition Screen Note RD Recommendation for Physician: -Recommend cardiac/ADA diet Plan of Care: RD following, monitoring for tolerance and adequacy Nutrition reason for involvement: consult and diagnosis - CHF Primary Diagnose(s): acute exacerbation of CHF PMH: HTN, diabetes, PAD, CABG Ht: 80 in Wt:259.19 lb BMI: 28.5 kg/m2 IBW:[address] Assessment: (01/13/20) Chart reviewed. Labs and meds reviewed. Pt is a 69 year old male admitted with acute exacerbation of CHF. Pt reports a good appetite and is eating most of his meals. 100% of breakfast recorded this morning. No weight loss reported and pt stated he usually weighs 260 lbs. No N/V/D/C or chewing/swallowing issues. RD provided pt with heart failure (low sodium) diet education materials. Pt was not interested in verbal education at time of visit and stated he will read materials at a later time. Encouraged pt to contact RD if he has questions and RD office number was provided. Will continue to monitor. Current Diet: cardiac Malnutrition Evaluation (01/13/20) The patient does not meet criteria for a specified degree of malnutrition at this time. Will re-evaluate at follow-up as appropriate. Diet Education Needs Assessment: (01/12) Diet education indicated, RD provided pt with heart failure (low sodium) diet education materials. Pt was not interested in verbal education at time of visit and stated he will read materials at a later time. Encouraged pt to contact RD if he has questions and RD office number was provided. Nutrition Care Level: low Signed: Vanessa Rivas, SANDIP, LD
[2020-01-13 16:44] LABS: FREE T4 (FREE THYROXINE) 1.15 ng/dL (0.8-1.8); THYROID STIMULATING HORMONE 1.474 uIU/mL (0.350-4.940)
[2020-01-13] MEDS: APIXAB 2.5 MG TABLET PO SCH (17:13)
--- NOTE | 2020-01-13 19:04 | Progress Note ---
DATE: Cardiology Progress Note. SUBJECTIVE: The patient still reports shortness of breath, however, has improved since admission. OBJECTIVE: VITAL SIGNS: Temperature is 97.6, heart rate 60, respirations are 16, blood pressure is 137/85, oxygen saturation is 96% on room air. GENERAL: Well appearing, no apparent distress. CARDIOVASCULAR: Irregularly irregular. LUNGS: Diminished breath sounds at the bases. ABDOMEN: Soft, obese, nontender. EXTREMITIES: Edema. CARDIOVASCULAR MEDICATIONS: Reviewed. LABORATORY DATA: Reviewed. TELEMETRY: Monitoring showed ventricular paced rhythm. Echocardiogram showed left ventricular ejection fraction of 20% to 25%. IMPRESSION: 1. Acute on chronic systolic congestive heart failure. 2. Pleural effusions. 3. Pulmonary edema. 4. Acute on chronic kidney disease. 5. Coronary artery disease, status post coronary artery bypass graft surgery and percutaneous coronary intervention. 6. Hypertension. 7. Hyperlipidemia. 8. Diabetes mellitus. 9. Presence of implantable cardioverter-defibrillator. RECOMMENDATIONS: Continue Lasix for diuresis. Repeat chest x-ray in the morning. Continue all other current cardiovascular medications. The patient's ejection fraction appears to have decreased. He has a stress test scheduled for next week. However, I feel that he will need coronary angiography prior to discharge to evaluate his coronary anatomy given the drop in his ejection fraction. DO VICENTE Abreu/MODL /[id number]
--- NOTE | 2020-01-13 20:39 | Consultation ---
DATE OF CONSULTATION: 01/13/2020 Endocrine Consultation This is a patient of Dr. Del Cid HISTORY OF PRESENT ILLNESS: Thank you very much for referring this patient. This is a 69-year-old white male gentleman, who was referred to me for evaluation of uncontrolled diabetes mellitus. The patient reportedly is a known diabetic for almost 20+ years and he takes Lantus insulin about 28 at bedtime and 5 to 6 of Humalog with each meal depending upon the blood sugars. The patient has multiple comorbidities associated with diabetes including history of coronary artery disease and congestive cardiac failure, status post CABG and peripheral vascular disease. His ejection fraction is around 30%. At this time, the patient came to the hospital with history of shortness of breath. The patient is on multiple medications including Lasix 40 mg q.12 hours. He is on Valsartan and metoprolol and Lipitor. The patient also has history of hyperlipidemia. PHYSICAL EXAMINATION: GENERAL: Today, the patient is alert, awake, little bit apprehensive. VITAL SIGNS: His heart rate is around 70 and blood pressure 120/70 mmHg. HEENT: Essentially unremarkable. NECK: Thyroid is palpable. Clinically, he is near euthyroid. CHEST: Bilateral vesicular breathing. No rales. CARDIAC: First and second heart sound. There is no third or fourth heart sound. Ejection systolic murmur sound grade 2/6. The patient has evidence of mild pedal edema. 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 CLINICAL IMPRESSION: 1. Diabetes mellitus, probably type 2 or maybe BERRY, uncontrolled with complications. 2. Congestive cardiac failure. 3. Coronary artery disease, status post stent placement and coronary artery bypass graft. 4. Hypertension. 5. Hyperlipidemia. PLAN: The plan at this time is to adjust his Lantus insulin and also give him more meal insulin probably 5 to 8 at each meal depending upon the blood sugars. We will also do a hemoglobin A1c, thyroid function test, and albumin-creatinine ratio on followup. Thank you again for referring this patient. I will be following this patient with you MD PAM Diego/MERNA /[id number]
[2020-01-13] MEDS: INSULIN GLARGINE 100 UNITS/ML VIAL SQ SCH (21:00)
[2020-01-14] VITALS (8 sets, daily range): BP systolic 125–144; BP diastolic 78–86
[2020-01-14] MEDS: FUROSEMIDE INJ 10 MG/ML 4 ML VIAL IV SCH (06:00)
[2020-01-14 06:09] LABS: BASOPHILS # (AUTO) 0.1 (0.0-0.1); BASOPHILS % 0.7 % (0.0-1.0); EOSINOPHILS # (AUTO) 0.2 (0.0-0.4); EOSINOPHILS % 2.7 % (0.0-6.0); HEMATOCRIT 45.8 % (38.2-49.6); HEMOGLOBIN 15.3 g/dL (14.0-18.0); LYMPHOCYTES # (AUTO) 1.8 (1.0-3.2); LYMPHOCYTES % 26.9 % (18.0-39.1); MEAN CORPUSCULAR HEMOGLOBIN 30.5 pg (28-32); MEAN CORPUSCULAR HGB CONC 33.4 g/dL (31-35); MEAN CORPUSCULAR VOLUME 91.2 fL (81-99); MONOCYTES % 14.8 % (4.4-11.3); NEUTROPHILS # (AUTO) 3.7 (2.1-6.9); NEUTROPHILS % 54.8 % (38.7-80.0); PLATELET COUNT 238 x10e3/uL (140-360); RED BLOOD COUNT 5.02 x10e6/uL (4.3-5.7); RED CELL DISTRIBUTION WIDTH 12.9 % (11.7-14.4)
[2020-01-14 06:30] LABS: ALBUMIN 3.5 g/dL (3.5-5.0); ALBUMIN/GLOBULIN RATIO 1.1 (0.8-2.0); ANION GAP 16.8 mmol/L (8-16); CALCIUM 9.2 mg/dL (8.4-10.2); CREATININE, SERUM 1.41 mg/dL (0.72-1.25)
[2020-01-14 06:32] LABS: POTASSIUM 2.8 mmol/L (3.5-5.1)
--- NOTE | 2020-01-14 06:43 | NUR ---
PAGED DR. HERNANDEZ REGARDING POTASSIUM LEVEL 2.8, AWAITING CALL BACK
--- NOTE | 2020-01-14 06:45 | NUR ---
SPOKE TO DR. HERNANDEZ REGARDING POTASSIUM LEVEL 2.8 AT THIS TIME. NEW ORDER RECEIVED FOR POTASSIUM 20MEQ PO NOW AND 20MEQ PO AFTER 2 HOURS.
--- NOTE | 2020-01-14 06:46 | Diagnostic Imaging Report ---
EXAMINATION: CHEST SINGLE (PORTABLE) INDICATION: pleural effusion COMPARISON: Chest x-ray 01/12/2020 FINDINGS: TUBES and LINES: Right chest cardiac device with leads in the right atrium and right ventricle and coronary sinus. LUNGS: Normal lung volumes. No consolidations. Prominent central pulmonary vasculature. PLEURA: Decreased pleural effusions compared to 01/12/2020, now minimal. HEART AND MEDIASTINUM: Cardiac size is mildly enlarged. BONES AND SOFT TISSUES: No acute osseous lesion. Soft tissues are unremarkable. Sternotomy wires. UPPER ABDOMEN: No free air under the diaphragm. IMPRESSION: Decreased pleural effusions compared to 01/12/2020, now minimal. Cardiomegaly and pulmonary vascular congestion. Signed by: Surya Wong DO on 01/14/2020 6:42 AM
[2020-01-14] MEDS ORDERED: POTASSIUM CHLORIDE 20 MEQ TAB CR PO ONE ×2 (07:00→09:00)
[2020-01-14 07:09] LABS: CLARITY,URINE CLEAR (CLEAR); COLOR,URINE YELLOW (YELLOW)
[2020-01-14 07:10] LABS: BILIRUBIN,URINE NEGATIVE (NEGATIVE); KETONES,URINE NEGATIVE (NEGATIVE); LEUKOCYTE ESTERASE ,URINE NEGATIVE (NEGATIVE); NITRITE,URINE NEGATIVE (NEGATIVE); PROTEIN,URINE DIPSTICK 2+ (NEGATIVE); URINE UROBILINOGEN 0.2 mg/dL (0.2 - 1)
[2020-01-14 07:11] LABS: BACTERIA,URINE RARE /HPF; EPITHELIAL CELLS,URINE FEW /LPF
[2020-01-14] MEDS: INSULIN LISPRO 100 UNIT/1 ML 3ML VIAL SQ SCH ×7 (07:30→21:00)
[2020-01-14] MEDS: APIXAB 2.5 MG TABLET PO SCH ×2 (08:46→16:37)
[2020-01-14] MEDS: VALSARTAN/SACUBITRIL 24MG/26MG 1 EA TAB PO SCH ×2 (08:46→16:37)
[2020-01-14] MEDS: TICAGRELOR 90 MG TABLET PO SCH ×2 (08:46→16:37)
[2020-01-14] MEDS: CRESTOR 10MG PO SCH (08:46)
[2020-01-14] MEDS: METOPROLOL TARTRATE 50 MG TAB PO SCH ×2 (08:47→16:37)
[2020-01-14] MEDS: SODIUM CHLORIDE 0.9% 1000ML 1,000 ML IV SCH (11:28)
--- NOTE | 2020-01-14 13:07 | Progress Note ---
DATE: Cardiology Progress Note SUBJECTIVE: The patient is feeling better. No chest pain. OBJECTIVE: VITAL SIGNS: Temperature is 97.7, heart rate is 60, respirations are 19, blood pressure is 125/86, and oxygen saturation 98% on room air. GENERAL: Well appearing, no apparent distress. CARDIOVASCULAR: Regular rate and rhythm. LUNGS: Diminished breath sounds at bases. ABDOMEN: Soft, nontender, and nondistended. EXTREMITIES: Trace edema. CARDIOVASCULAR MEDICATIONS: Reviewed. Include metoprolol tartrate 100 mg p.o. b.i.d., Eliquis 2.5 mg p.o. b.i.d., Entresto 24/ b.i.d., Crestor 20 mg daily, and Brilinta 90 mg p.o. b.i.d. LABORATORY DATA: Reviewed. Potassium 2.8 and creatinine has risen to 1.4. Telemetry monitoring shows ventricular paced rhythm. IMPRESSION: 1. Pkosb-jb-zibjgnv systolic congestive heart failure. 2. Pleural effusion. 3. Pulmonary edema. 4. Hpegz-wk-wzaokdo kidney disease. 5. Coronary artery disease, status post coronary artery bypass graft surgery and percutaneous coronary intervention. 6. Hypertension. 7. Hyperlipidemia. 8. Diabetes mellitus. 9. Presence of an implantable cardioverter-defibrillator. RECOMMENDATIONS: The patient's Lasix was discontinued. His creatinine continues to rise. His chest x-ray shows pulmonary edema that is persistent, however, his pleural effusions have improved. It appears that the patient's ejection fraction has decreased when our clinic notes were reviewed. There was reported time where his ejection fraction increased to 40%, currently is at 20% to 25%. He was scheduled for a stress test next week. However, he likely will need coronary angiography prior to discharge to evaluate his coronary anatomy given his drop in ejection fraction. We will continue to monitor his daily creatinine and ins and outs. DO VICENTE Abreu/MODL /[id number]
--- NOTE | 2020-01-14 14:52 | Consultation ---
DATE OF CONSULTATION: 01/14/2020 Renal Consultation REASON FOR CONSULTATION: Acute kidney injury. HISTORY OF PRESENT ILLNESS: A 69-year-old male with history of congestive heart failure with an EF of 20%, diabetes, hypertension, who presented to [facility] on 01/11/2020 with worsening shortness of breath. The patient apparently was in his usual state of health until approximately 3 weeks ago when he developed orthopnea, lower extremity swelling, and worsening dyspnea on exertion. The patient's symptoms progressively got worse, where he came to the emergency room. He denied any chest pain. The patient was admitted, was seen by Pulmonary and Cardiology for acute on chronic systolic congestive heart failure and diuresed. The patient's creatinine increased, losartan was discontinued. The patient was noted to be a candidate for cardiac cath and Nephrology consultation was called. The patient denies taking any NSAIDs in the past 12 months. REVIEW OF SYSTEMS: A 12-point review of systems completed. All systems negative other than mentioned in the HPI above. PAST MEDICAL HISTORY: 1. Diabetes. 2. Coronary artery disease. 3. Congestive heart failure with an EF of less than 20%. 4. Hypertension. 5. Dyslipidemia. PAST SURGICAL HISTORY: 1. Pacemaker defibrillator. 2. CABG 4 vessel. 3. PTCA. SOCIAL HISTORY: No tobacco. No alcohol. No IV drugs. FAMILY HISTORY: No family history of kidney disease. ALLERGIES: NO KNOWN DRUG ALLERGIES. CURRENT MEDICATIONS: See list. The patient is receiving Entresto, normal saline at 50 mL an hour. PHYSICAL EXAMINATION: VITAL SIGNS: Blood pressure 128/78, pulse 60, respiratory rate 19, temperature 98.2. GENERAL: No apparent distress. HEENT: Oropharynx clear. No scleral icterus. No peripheral edema. NECK: Supple. Slight elevation in jugular venous pressure. No lymphadenopathy. CHEST: Decreased breath sounds at bases anteriorly bilaterally, otherwise clear to auscultation. CARDIOVASCULAR: Regular rhythm. No murmurs or rubs. ABDOMEN: Soft. Positive bowel sounds. No tenderness. No rebound. EXTREMITIES: No edema. No clubbing. No cyanosis. SKIN: Warm. LABORATORY DATA: Sodium 141, potassium 2.8, chloride 102, CO2 25, BUN 24, creatinine 1.41. Creatinine was 1.36 on admission. Creatinine on 04/26/2019 was 1.22. White count 6.7, hemoglobin 15, hematocrit 45, platelets 238. Chest x-ray shows cardiomegaly and vascular congestion. ASSESSMENT/PLAN: 1. Acute kidney injury due to cardiorenal syndrome. Agree with holding Lasix and if indeed the patient to have cardiac cath, agree with gentle IV fluid and we will hold Entresto prior to the procedure. The patient at risk for contrast induced nephropathy. We will check urine studies as the patient did have on spot protein to creatinine ratio, and Entresto will need to be restarted at discharge. 2. Congestive heart failure, compensated on exams. 3. Hypokalemia, replaced with Lasix on hold. 4. Diabetes per primary team. MD RAYMUNDO Mendez/MERNA /[id number]
[2020-01-14 15:22] LABS: CREATININE,URINE RANDOM 101.15 mg/dL (63-166); TOTAL PROTEIN, URINE 46.7 mg/dL (1-14)
[2020-01-14] MEDS: INSULIN GLARGINE 100 UNITS/ML VIAL SQ SCH (22:26)
[2020-01-15] VITALS (8 sets, daily range): BP systolic 118–134; BP diastolic 77–97
[2020-01-15 05:32] LABS: BASOPHILS # (AUTO) 0.1 (0.0-0.1); BASOPHILS % 0.9 % (0.0-1.0); EOSINOPHILS # (AUTO) 0.2 (0.0-0.4); EOSINOPHILS % 3.4 % (0.0-6.0); HEMATOCRIT 42.1 % (38.2-49.6); HEMOGLOBIN 14.9 g/dL (14.0-18.0); LYMPHOCYTES % 30.9 % (18.0-39.1); MEAN CORPUSCULAR HEMOGLOBIN 33.5 pg (28-32); MEAN CORPUSCULAR HGB CONC 35.4 g/dL (31-35); MONOCYTES # (AUTO) 0.9 (0.2-0.8); MONOCYTES % 13.1 % (4.4-11.3); NEUTROPHILS # (AUTO) 3.4 (2.1-6.9); NEUTROPHILS % 51.4 % (38.7-80.0); PLATELET COUNT 186 x10e3/uL (140-360); RED BLOOD COUNT 4.45 x10e6/uL (4.3-5.7); RED CELL DISTRIBUTION WIDTH 15.1 % (11.7-14.4)
[2020-01-15 05:35] LABS: MEAN CORPUSCULAR VOLUME 94.6 fL (81-99)
[2020-01-15 05:52] LABS: ANION GAP 17.2 mmol/L (8-16); CALCIUM 8.8 mg/dL (8.4-10.2); CREATININE, SERUM 1.27 mg/dL (0.72-1.25); POTASSIUM 3.2 mmol/L (3.5-5.1)
[2020-01-15] MEDS: SODIUM CHLORIDE 0.9% 1000ML 1,000 ML IV SCH (06:06)
[2020-01-15] MEDS: INSULIN LISPRO 100 UNIT/1 ML 3ML VIAL SQ SCH ×7 (07:30→20:36)
[2020-01-15] MEDS: METOPROLOL TARTRATE 50 MG TAB PO SCH (08:57)
[2020-01-15] MEDS: VALSARTAN/SACUBITRIL 24MG/26MG 1 EA TAB PO SCH ×2 (08:57→17:32)
[2020-01-15] MEDS: APIXAB 2.5 MG TABLET PO SCH ×2 (08:57→17:32)
[2020-01-15] MEDS: TICAGRELOR 90 MG TABLET PO SCH ×2 (08:57→17:32)
[2020-01-15] MEDS: CRESTOR 10MG PO SCH (08:57)
[2020-01-15] MEDS ORDERED: POTASSIUM CHLORIDE 20 MEQ TAB CR PO PRN (09:15)
--- NOTE | 2020-01-15 12:56 | NUR ---
Discontinuing PT services since patient is independent in functional mobility. Thank you. Addendum: 01/15/20 at 1257 by Ivan montague PT Amended: Links added.
[2020-01-15 15:42] LABS: ANION GAP 14.7 mmol/L (8-16); CALCIUM 8.7 mg/dL (8.4-10.2); CREATININE, SERUM 1.34 mg/dL (0.72-1.25); POTASSIUM 3.7 mmol/L (3.5-5.1)
--- NOTE | 2020-01-15 18:25 | Progress Note ---
DATE: 01/15/2020 Cardiology Progress Note SUBJECTIVE: The patient denies chest pain, but he does note dyspnea on exertion. OBJECTIVE: VITAL SIGNS: Temperature 97.4 degrees, pulse 59, respiratory rate 22, blood pressure 132/85, and oxygen saturation 99% on room air. GENERAL: Awake, alert, in no distress. LUNGS: Clear to auscultation bilaterally. No wheezes or crackles. CARDIOVASCULAR: Normal rate. Regular rhythm. No murmur. Normal S1 and S2. ABDOMEN: Soft and nontender. EXTREMITIES: No edema. CARDIAC MEDICATIONS: Apixaban 2.5 mg p.o. b.i.d., metoprolol tartrate 100 mg p.o. b.i.d., Entresto / p.o. b.i.d., and rosuvastatin 20 mg p.o. daily. LABORATORY DATA: WBC 6.54, hemoglobin 14.9, hematocrit 42.1, and platelets 186. Sodium 140, potassium 3.7, chloride 106, CO2 23, BUN 23, and creatinine 1.34. Telemetry was personally reviewed and interpreted, revealing atrial ventricular paced rhythm. IMPRESSION: 1. Wllgl-au-yrkafml systolic heart failure. 2. Bscpj-ze-gplphrm kidney disease. 3. Coronary artery disease, status post coronary artery bypass grafting and percutaneous coronary intervention. 4. Hypertension. 5. Hyperlipidemia. 6. Diabetes mellitus. 7. Status post ICD. RECOMMENDATIONS: Appreciate Nephrology input. They indicate he is reasonable to proceed with coronary angiogram at this time given his drop in ejection fraction, n.p.o. after midnight. 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 Continue Entresto and Crestor. He needs to be on metoprolol succinate instead of metoprolol tartrate. This will be changed. Volume management per Nephrology given yxygy-hr-ogtqjix kidney disease. Blood pressure is well controlled. Thank you for this consult. We will continue to follow. Rosalie Lee MD ABS/MODL /[id number]
--- NOTE | 2020-01-15 19:00 | NUR ---
RECEIVED PATIENT IN BEDSIDE SHIFT REPORT. PATIENT RESTING IN BED AT THIS TIME. NO PAIN REPORTED. NO S&S OF DISTRESS NOTED. NS RUNNING AT 50ML/HR TO R FA 20G, ASYMPTOMATIC. BED LOCKED IN LOWEST POSITION, SIDE RAILS UPX2, CALL LIGHT IN REACH.
--- NOTE | 2020-01-15 19:15 | Progress Note ---
DATE: 01/15/2020 Renal Progress Note SUBJECTIVE: Events over the past 24 hours have been noted. No chest pain. No shortness of breath. PHYSICAL EXAMINATION: VITAL SIGNS: Blood pressure 118/77, pulse 80, respirations 20, afebrile. GENERAL: The patient is in no acute distress. HEENT: No increased JVD. CARDIOVASCULAR: Regular rate and rhythm. LUNGS: Clear to auscultation bilaterally. ABDOMEN: Positive bowel sounds. EXTREMITIES: No significant edema, cyanosis, or clubbing. LABORATORY RESULTS: Hemoglobin is 15. Sodium 140, potassium 3.7, chloride 106, bicarb 23, BUN and creatinine 23 and 1.3 respectively. IMPRESSION: 1. Chronic kidney disease stage 3. 2. Hypertension. 3. Acute kidney injury superimposed on chronic kidney disease. 4. Hyperlipidemia. 5. Hypertension. 6. Diabetes. PLAN: The patient is okay to proceed with cardiac catheterization. He is on IV fluids right now. We will add normal saline at 50 mL an hour. We will continue this for at least 6 hours after the cardiac catheterization. I will go ahead and prescribe some Mucomyst 600 mg p.o. every 12 hours. We will go ahead and start that now and I will probably discontinue that about 12 hours after the cardiac catheterization. His volume status is euvolemic at this time. Again, from a Nephrology standpoint it is okay to proceed with cardiac catheterization. Case discussed with Dr. Lee. Ather MD RAYMOND Macias/MERNA /[id number]
[2020-01-15] MEDS: INSULIN GLARGINE 100 UNITS/ML VIAL SQ SCH (21:00)
[2020-01-15] MEDS: ACETYLCYSTEINE 20% INHAL SOLN 30 ML VIAL PO SCH (21:19)
[2020-01-16] VITALS (8 sets, daily range): BP systolic 128–161; BP diastolic 70–89
[2020-01-16] MEDS: SODIUM CHLORIDE 0.9% 1000ML 1,000 ML IV SCH ×2 (01:42→23:00)
[2020-01-16 05:12] LABS: BASOPHILS # (AUTO) 0.1 (0.0-0.1); EOSINOPHILS # (AUTO) 0.2 (0.0-0.4); EOSINOPHILS % 3.4 % (0.0-6.0); HEMATOCRIT 43.1 % (38.2-49.6); HEMOGLOBIN 14.3 g/dL (14.0-18.0); LYMPHOCYTES # (AUTO) 1.8 (1.0-3.2); LYMPHOCYTES % 29.6 % (18.0-39.1); MEAN CORPUSCULAR HEMOGLOBIN 30.1 pg (28-32); MEAN CORPUSCULAR HGB CONC 33.2 g/dL (31-35); MEAN CORPUSCULAR VOLUME 90.7 fL (81-99); MONOCYTES # (AUTO) 0.8 (0.2-0.8); MONOCYTES % 12.2 % (4.4-11.3); NEUTROPHILS # (AUTO) 3.3 (2.1-6.9); NEUTROPHILS % 53.5 % (38.7-80.0); PLATELET COUNT 235 x10e3/uL (140-360); RED BLOOD COUNT 4.75 x10e6/uL (4.3-5.7); RED CELL DISTRIBUTION WIDTH 12.9 % (11.7-14.4)
[2020-01-16 05:39] LABS: ANION GAP 16.5 mmol/L (8-16); CALCIUM 8.6 mg/dL (8.4-10.2); CREATININE, SERUM 1.22 mg/dL (0.72-1.25); POTASSIUM 3.5 mmol/L (3.5-5.1)
[2020-01-16] MEDS: INSULIN LISPRO 100 UNIT/1 ML 3ML VIAL SQ SCH ×7 (07:30→21:09)
--- NOTE | 2020-01-16 08:54 | Diagnostic Imaging Report ---
EXAMINATION: CHEST SINGLE (PORTABLE) INDICATION: CHF COMPARISON: Chest radiograph 01/14/2020 FINDINGS: LINES/TUBES:Right chest AICD unchanged. EKG leads overlie the chest. LUNGS:The lungs are well-inflated. Mild bibasilar subsegmental atelectasis. No focal pneumonia or pulmonary edema. PLEURA:No pleural effusion or pneumothorax. MEDIASTINUM:The cardiomediastinal silhouette appears unchanged in size and shape. BONES/SOFT TISSUES:No acute osseous injury. Sternotomy wires intact. ABDOMEN:No free air under the diaphragm. IMPRESSION: Mild bibasilar subsegmental atelectasis. No focal pneumonia or pulmonary edema. Signed by: Filiberto Alejandra MD on 01/16/2020 8:51 AM
[2020-01-16] MEDS: APIXAB 2.5 MG TABLET PO SCH ×2 (09:00→17:31)
[2020-01-16] MEDS: TICAGRELOR 90 MG TABLET PO SCH ×2 (10:16→17:31)
[2020-01-16] MEDS: CRESTOR 10MG PO SCH (10:16)
[2020-01-16] MEDS: VALSARTAN/SACUBITRIL 24MG/26MG 1 EA TAB PO SCH ×2 (10:16→17:32)
[2020-01-16] MEDS: ACETYLCYSTEINE 20% INHAL SOLN 30 ML VIAL PO SCH ×2 (10:16→21:09)
[2020-01-16] MEDS: METOPROLOL SUCCINATE 50 MG TAB XL PO SCH ×2 (10:16→17:32)
--- NOTE | 2020-01-16 14:05 | Progress Note ---
DATE: 01/16/2020 Renal Progress Note SUBJECTIVE: Events over the past 24 hours have been noted. The patient is scheduled to undergo cardiac catheterization today. PHYSICAL EXAMINATION: VITAL SIGNS: Blood pressure 157/87, pulse 57, and temperature 97.6. GENERAL: The patient is in no acute distress. HEENT: No increased JVD. CARDIOVASCULAR: Regular rate and rhythm. LUNGS: Clear to auscultation bilaterally. ABDOMEN: Positive bowel sounds. EXTREMITIES: No significant edema, cyanosis, or clubbing. LABORATORY RESULTS: Sodium 138, potassium 3.5, chloride 107, bicarbonate 18, BUN and creatinine 21 and 1.22 respectively. IMPRESSION: 1. Chronic kidney disease stage 3. 2. Hypertension. 3. Acute kidney injury superimposed on chronic kidney disease. 4. Hyperlipidemia. 5. Diabetes. PLAN: The patient is undergoing cardiac catheterization. He is getting gentle IV fluids at 50 mL an hour of normal saline. This will be continued. He is also getting Mucomyst. The Mucomyst will be continued. He is going for cath today with the last dose of Mucomyst will be tomorrow morning. He is tolerating his hydration well. Ather MD RAYMOND Macias/MERNA /[id number]
[2020-01-16] MEDS ORDERED: MIDAZOLAM HCL 2 MG/2 ML VIAL ONE (15:16)
[2020-01-16] MEDS ORDERED: HEPARIN SOD/SOD CHLORIDE 2,000 ML ONE (15:17)
[2020-01-16] MEDS ORDERED: SODIUM CHLORIDE 0.9% 1000ML 1,000 ML ONE (15:17)
[2020-01-16] MEDS ORDERED: FENTANYL CITRATE/PF 100MCG/2 ML INJ ONE (15:17)
[2020-01-16] MEDS ORDERED: IOPAMIDOL 370 MG/ML 200 ML INFUS..BTL INJ ONE (15:17)
[2020-01-16] MEDS ORDERED: LIDOCAINE HCL 2% LOCAL 20 ML VIAL ONE (16:05)
[2020-01-16] MEDS ORDERED: PRASUGREL 10 MG TAB ONE ×2 (16:27→16:29)
[2020-01-16] MEDS ORDERED: ASPIRIN 325 MG TAB ONE (16:28)
--- NOTE | 2020-01-16 17:15 | Progress Note ---
DATE: 01/16/2020 Cardiology Progress Note SUBJECTIVE: The patient denies chest pain or shortness of breath. Plan for cardiac catheterization today. OBJECTIVE: VITAL SIGNS: Temperature 97.6 degrees, pulse 87, respiratory rate 20, blood pressure 137/87, and oxygen 100%. GENERAL: Awake, alert, in no acute distress. LUNGS: Clear to auscultation bilaterally. No wheezes or crackles. CARDIOVASCULAR: Normal rate, regular rhythm. No murmur. Normal S1, S2. ABDOMEN: Soft, nontender. EXTREMITIES: No edema. CARDIAC MEDICATIONS: Metoprolol succinate 100 mg p.o. b.i.d., Entresto 24/26 mg p.o. b.i.d., Crestor 20 mg p.o. daily, and apixaban 2.5 mg p.o. b.i.d. LABORATORY DATA: WBC 6.22, hemoglobin 14.3, hematocrit 43.1, and platelets 235. Sodium 138, potassium 3.5, chloride 107, CO2 of 18, BUN 21, and creatinine 1.22. TELEMETRY: Telemetry was personally reviewed and interpreted revealing atrioventricular paced rhythm. IMPRESSION: 1. Swdyu-dl-uqixqyp systolic heart failure. 2. Emrvc-td-hdxrroq kidney disease. 3. Coronary artery disease, status post coronary artery bypass graft and percutaneous coronary intervention. 4. Hypertension. 5. Hyperlipidemia. 6. Diabetes mellitus. 7. Status post implantable cardioverter defibrillator. RECOMMENDATIONS: Plan for cardiac catheterization today. Continue Entresto and Crestor. Continue metoprolol succinate. He is on optimal medical therapy for his heart failure. Monitor blood pressure closely. Volume management per Nephrology given acute on chronic kidney disease. Further recommendations pending test results. Thank you for this consult. We will continue to follow. Rosalie Lee MD ABS/MODL /[id number]
--- NOTE | 2020-01-16 17:30 | NUR ---
patient returned from medical lab specialist. bedrest until 11pm. patient aware. soft hematoma noted to right groin. outline marked. patient aware to call RN for any needs.
[2020-01-16] MEDS ORDERED: ELIQUIS2.5 MG PO (18:08)
[2020-01-16] MEDS ORDERED: Insulin Lispro SQ (18:08)
[2020-01-16] MEDS ORDERED: Insulin Glargine SQ (18:08)
--- NOTE | 2020-01-16 19:00 | NUR ---
RECEIVED PATIENT IN BEDSIDE SHIFT REPORT. PATIENT RESTING IN BED AT THIS TIME. NO PAIN REPORTED. S/P HEART CATH WITH STENT PLACEMENT, PATIENT TO REMAIN FLAT UNTIL 2300, PATIENT VERBALIZED UNDERSTANDING. DRESSING TO R GROIN C/D/I, MARKINGS SURROUNDING REPORTED HEMATOMA NOTED. TISSUE IS SOFT. PERSONAL ITEMS IN REACH. BED LOCKED IN LOWEST POSITION, SIDE RAILS UPX2, CALL LIGHT IN REACH.
[2020-01-16] MEDS ORDERED: AMOXICILLIN500 MG PO (19:46)
--- NOTE | 2020-01-16 20:52 | Operative Report ---
DATE OF PROCEDURE: 01/16/2020 SURGEON: Mathew Madison MD INDICATIONS: Coronary artery disease, acute systolic heart failure with progressive decrease in ejection fraction. COMPLICATIONS: None. BLOOD LOSS: Minimal. RECOMMENDATIONS: Staged right coronary artery intervention after noninvasive assessment of ischemia, high risk procedure. PROCEDURES PERFORMED: 1. Left heart catheterization, selective coronary angiography. 2. Conscious sedation, 65 minutes. 3. Selective cannulation of one arterial bypass graft. 4. Stent placement to the obtuse marginal/ramus intermedius artery branch of the circumflex artery. 5. Deployment of right groin Mynx closure device. DESCRIPTION OF PROCEDURE: Access was obtained in the right femoral artery. A 6-Georgian sheath was placed. Right coronary artery, diffuse 90% to 95% stenosis, heavily calcified, tortuous vessel. Left anterior descending artery occluded in its proximal portion. Circumflex stent extending into the left main was widely patent. Ramus intermedius stent was widely patent, proximal to the stent, 90% ostial ramus intermedius occlusion stenosis. Left internal mammary artery bypass to left anterior descending artery is widely open. A decision was made to intervene on the ramus intermedius artery. The patient received intravenous Angiomax for anticoagulation. The left main was cannulated using an XB3.5, 6-Georgian guiding catheter. Short Runthrough wire was advanced into the ramus intermedius. Predilatation with 1.5 mm balloon following which a single 2.25 x 8 mm Resolute [place] stent was deployed at 18 atmospheres, excellent end result without any stent failure of the previously existing circumflex stent. Wire and guide sheath were removed. Mynx closure device applied. The patient transferred to the floor in stable condition. Mathew Madison MD KSB/MODL /[id number]
[2020-01-16] MEDS ORDERED: INSULIN GLARGINE 100 UNITS/ML VIAL SQ SCH (21:00)
[2020-01-16] MEDS: AMOXICILLIN 250 MG CAP PO SCH (22:00)
--- NOTE | 2020-01-16 23:16 | NUR ---
ASSISTED PATIENT TO SIT UP IN BED. VITALS STABLE. R GROIN SITE REMAINS UNCHANGED, C/D/I. PATIENT VERBALIZED UNDERSTANDING TO CALL STAFF IF SITE BEGINS TO BLEED AND TO MOVE SLOWLY AND CAREFULLY. WILL CONTINUE TO MONITOR SITE.
[2020-01-17] VITALS: BP 163/89
[2020-01-17 04:01] VITALS: BP 151/78
[2020-01-17] MEDS: INSULIN LISPRO 100 UNIT/1 ML 3ML VIAL SQ SCH ×2 (07:30→08:44)
[2020-01-17 07:40] VITALS: BP 146/81
[2020-01-17] MEDS: ACETYLCYSTEINE 20% INHAL SOLN 30 ML VIAL PO SCH (08:29)
[2020-01-17] MEDS: METOPROLOL SUCCINATE 50 MG TAB XL PO SCH (08:29)
[2020-01-17] MEDS: APIXAB 2.5 MG TABLET PO SCH (08:29)
[2020-01-17] MEDS: VALSARTAN/SACUBITRIL 24MG/26MG 1 EA TAB PO SCH (08:29)
[2020-01-17] MEDS: AMOXICILLIN 250 MG CAP PO SCH (08:29)
[2020-01-17] MEDS: CRESTOR 10MG PO SCH (08:29)
[2020-01-17] MEDS: TICAGRELOR 90 MG TABLET PO SCH (08:29)
[2020-01-17 09:00] LABS: BASOPHILS % 0.6 % (0.0-1.0); EOSINOPHILS # (AUTO) 0.1 (0.0-0.4); HEMATOCRIT 43.9 % (38.2-49.6); LYMPHOCYTES # (AUTO) 1.1 (1.0-3.2); LYMPHOCYTES % 17.3 % (18.0-39.1); MEAN CORPUSCULAR HEMOGLOBIN 30.1 pg (28-32); MEAN CORPUSCULAR HGB CONC 31.9 g/dL (31-35); MONOCYTES # (AUTO) 0.6 (0.2-0.8); MONOCYTES % 9.8 % (4.4-11.3); NEUTROPHILS # (AUTO) 4.6 (2.1-6.9); PLATELET COUNT 219 x10e3/uL (140-360); RED BLOOD COUNT 4.65 x10e6/uL (4.3-5.7); RED CELL DISTRIBUTION WIDTH 12.8 % (11.7-14.4)
[2020-01-17 09:09] LABS: MEAN CORPUSCULAR VOLUME 94.4 fL (81-99)
[2020-01-17 09:15] VITALS: BP 146/81
[2020-01-17 09:20] LABS: ANION GAP 16.8 mmol/L (8-16); BLOOD UREA NITROGEN 18 mg/dL (7-26); BUN/CREATININE RATIO 15 (6-25); CALCIUM 8.6 mg/dL (8.4-10.2); CARBON DIOXIDE 18 mmol/L (22-29); CHLORIDE 108 mmol/L (98-107); CREATININE, SERUM 1.18 mg/dL (0.72-1.25); EST GLOMERULAR FILTRATION RATE > 60 ML/MIN (60-); GLUCOSE 197 mg/dL (74-118); POTASSIUM 3.8 mmol/L (3.5-5.1); SODIUM 139 mmol/L (136-145)
--- NOTE | 2020-01-17 10:27 | NUR ---
PATIENT DISCHARGED. IV ACCESS REMOVED AND TELEMETRY REMOVED. PT VERBALIZED UNDERSTANDING OF FOLLOW UP APPTS NEEDED AND NEW PRESCRIPTIONS. PT AMBULATED OFF UNIT WITH ALL BELONGINGS IN STABLE CONDITION.
--- NOTE | 2020-01-17 11:20 | Progress Note ---
DATE: 01/17/2020 Cardiology Progress Note SUBJECTIVE: The patient denies chest pain or shortness of breath. OBJECTIVE: VITAL SIGNS: Temperature 97.6 degrees, pulse 60, respiratory rate 20, blood pressure 146/81, oxygen 99%. GENERAL: Awake and alert, in no acute distress. LUNGS: Clear to auscultation bilaterally. No wheezes or crackles. CARDIOVASCULAR: Normal rate. Regular rhythm. No murmur. Normal S1, S2. ABDOMEN: Soft and nontender. EXTREMITIES: No edema. Right groin with bruising but no hematoma or bruit. CARDIAC MEDICATIONS: Metoprolol succinate 100 mg p.o. b.i.d., apixaban 2.5 mg p.o. b.i.d., Entresto 24/26 mg p.o. b.i.d., Crestor 20 mg p.o. daily, Brilinta 90 mg p.o. b.i.d. LABORATORY DATA: WBC 6.55, hemoglobin 14, hematocrit 43.9, platelets 219. Sodium 139, potassium 3.8, chloride 108, CO2 18, BUN 18, and creatinine 1.18. TELEMETRY: Telemetry was personally reviewed and interpreted revealing atrioventricular paced rhythm. IMPRESSION: 1. Nxegt-nx-[id number] systolic heart failure. 2. Zxclz-ut-tboxxkl kidney disease. 3. Coronary artery disease status post coronary artery bypass graft and percutaneous coronary intervention. 4. Hypertension. 5. Hyperlipidemia. 6. Diabetes mellitus. 7. Status post implantable cardioverter defibrillator. RECOMMENDATIONS: The patient underwent cardiac catheterization with intervention on his ramus intermedius. He was instructed to continue dual antiplatelet therapy. Follow up with Dr. Madison in 2 weeks. He is on optimal medical therapy for his heart failure, continue. Volume management per Nephrology given acute on chronic kidney disease. The patient will need to follow up in the office for nuclear stress test to determine if he has ischemia in the RCA territory as this would be high-risk intervention if necessary. Thank you for this consult. We will continue to follow. Rosalie Lee MD ABS/MODL /[id number]
--- NOTE | 2020-01-17 12:00 | Discharge Summary ---
The patient of andrey, Dr. Madison and Dr. Acevedo HOSPITAL COURSE: Charming but unfortunate 69-year-old gentleman with history of complex coronary artery disease, ventricular tachycardia in the past, admitted with congestive heart failure, shortness of breath and large right pleural effusion. He has had bypass surgery in the past and has had multiple coronary stents in the past including stents in the circumflex and LAD, obtuse marginal. He underwent a right thoracentesis, 1200 mL of fluid was drained. His ejection fraction had fallen to approximately 20% and decision was made to keep the patient to see if coronary intervention could help him because of the sudden decline in his functional status. A stent was placed in the obtuse marginal ramus intermedius branch of the circumflex. There was diffuse right coronary disease with plans for followup catheterization in the future. The LAD was occluded in his proximal portion. Circumflex stent was open. The ramus intermediate stent was open. These have been placed in the past. There is 90% ostial ramus intermedius occlusion. In addition to catheterization, the patient had mild renal failure, presumed to be largely related to diuresis, was corrected prior to the procedure. Pleural fluid was transudate. He had moderate proteinuria, was seen by renal service. Hemoglobin A1c was 9.4. He was seen by Endocrinology. He is discharged to be followed by myself, Dr. Madison, Dr. Acevedo as an outpatient. He also grew enterococcus faecalis which was sensitive to ampicillin and he is discharged on amoxicillin. He has a history of AICD and ventricular pacemaker in the past, history of intermittent atrial fibrillation in the past. He is to be discharged on amoxicillin, metoprolol 50 mg b.i.d. Xarelto 5 mg a day, Entresto one b.i.d., Neurontin 90 b.i.d., Crestor 10 mg, Lasix 40, aspirin 81, Lantus insulin 16 at night, 5 units with meals of Humalog. At discharge, much improved with small hematoma. Thank you for this kind referral. Hector Del Cid MD DS/MODL /[id number]
== END 2020-01-17 10:27 | disposition home or self-care (01) | DRG 246 ==
LOC: FSED 14:30 → ERHOLD 15:34 → MED/SURG 18:57
PROVIDERS: ADMIT Internal Medicine Pulmonary Disease; ATTEND Internal Medicine Pulmonary Disease
PROC: 0W9B3ZZ Drainage of Left Pleural Cavity, Percutaneous Approach (ICD-10-PCS; 2020-01-11)
PROC: 027034Z Dilation of Coronary Artery, One Artery with Drug-eluting Intraluminal Device, Percutaneous Approach (ICD-10-PCS; principal; 2020-01-16)
PROC: 4A023N7 Measurement of Cardiac Sampling and Pressure, Left Heart, Percutaneous Approach (ICD-10-PCS; 2020-01-16)
PROC: B2111ZZ Fluoroscopy of Multiple Coronary Arteries using Low Osmolar Contrast (ICD-10-PCS; 2020-01-16)
PROC: B2181ZZ Fluoroscopy of Left Internal Mammary Bypass Graft using Low Osmolar Contrast (ICD-10-PCS; 2020-01-16)
DX: I13.0 Hypertensive heart and chronic kidney disease with heart failure and stage 1 through stage 4 chronic kidney disease, or unspecified chronic kidney disease (principal); I50.23 Acute on chronic systolic (congestive) heart failure; J90 Pleural effusion, not elsewhere classified; N17.9 Acute kidney failure, unspecified; I48.19 Other persistent atrial fibrillation; Z95.1 Presence of aortocoronary bypass graft; Z95.810 Presence of automatic (implantable) cardiac defibrillator; E87.6 Hypokalemia; I25.110 Atherosclerotic heart disease of native coronary artery with unstable angina pectoris; I25.720 Atherosclerosis of autologous artery coronary artery bypass graft(s) with unstable angina pectoris; E11.22 Type 2 diabetes mellitus with diabetic chronic kidney disease; N18.3 Chronic kidney disease, stage 3 (moderate); Z11.59 Encounter for screening for other viral diseases; Z79.4 Long term (current) use of insulin
CPT/HCPCS: 32555; 36415; 71045; 71046; 74470; 76604; 80048; 80053; 81001; 81003; 82044; 82550; 82553; 82570; 82948; 83036; 83615; 83735; 83880; 84156; 84439; 84443; 84484; 85025; 85379; 85610; 87086; 87186; 88112; 88305; 92928; 93005; 93306; 93454; 96374; 99152; 99153; 99284; C1725; C1874; J1815; J1940; J2001; J2250; J2405; J3010; J7030; Q9967; U0002

== ENCOUNTER → 2020-07-04 | Outpatient (CLI) | payer MEDICARE ==
[~2020-07-04] MED LIST changes: +AMOXICILLIN500 MG PO; +ELIQUIS2.5 MG PO; +Insulin Glargine SQ; +Insulin Lispro SQ
[2020-07-04 13:05] LABS: HEMOGLOBIN 12.3 g/dL (14.0-18.0)
[2020-07-04 13:30] LABS: INR 0.94; PARTIAL THROMBOPLASTIN TIME 30.4 seconds (23.8-35.5); PROTHROMBIN TIME 13.1 seconds (11.9-14.5)
== END ==
LOC: US 12:12
PROVIDERS: ATTEND Internal Medicine Pulmonary Disease
DX: J90 Pleural effusion, not elsewhere classified (principal); R06.02 Shortness of breath; E13.8 Other specified diabetes mellitus with unspecified complications; I50.9 Heart failure, unspecified; Z95.5 Presence of coronary angioplasty implant and graft
CPT/HCPCS: 32555; 36415; 71045; 82945; 83615; 84157; 85014; 85049; 85610; 85730; 87070; 87116; 87205; 87206

== ENCOUNTER 2021-03-01 13:42 | Inpatient (IN) | payer MEDICARE ==
[~2021-03-01] VITALS: Ht 203.2 cm; Wt 108.9 kg
[2021-03-01 14:39] LABS: BASOPHILS # (AUTO) 0.1 (0.0-0.1); BASOPHILS % 0.9 % (0.0-1.0); EOSINOPHILS # (AUTO) 0.1 (0.0-0.4); EOSINOPHILS % 1.1 % (0.0-6.0); HEMATOCRIT 33.5 % (38.2-49.6); HEMOGLOBIN 10.4 g/dL (14.0-18.0); LYMPHOCYTES # (AUTO) 1.2 (1.0-3.2); LYMPHOCYTES % 21.8 % (18.0-39.1); MEAN CORPUSCULAR HEMOGLOBIN 29.6 pg (28-32); MEAN CORPUSCULAR VOLUME 95.4 fL (81-99); MONOCYTES # (AUTO) 0.8 (0.2-0.8); MONOCYTES % 14.2 % (4.4-11.3); NEUTROPHILS # (AUTO) 3.5 (2.1-6.9); NEUTROPHILS % 61.6 % (38.7-80.0); PLATELET COUNT 290 x10e3/uL (140-360); RED BLOOD COUNT 3.51 x10e6/uL (4.3-5.7)
[2021-03-01 14:59] LABS: ALBUMIN 3.5 g/dL (3.5-5.0); ALBUMIN/GLOBULIN RATIO 0.9 (0.8-2.0); CREATININE, SERUM 1.66 mg/dL (0.72-1.25)
[2021-03-01] MEDS ORDERED: FUROSEMIDE INJ 10 MG/ML 4 ML VIAL ONE (15:43)
[2021-03-01] MEDS ORDERED: SODIUM CHLORIDE 0.9% 50ML 50 ML ONE (17:53)
[2021-03-01] MEDS ORDERED: IOPAMIDOL 370 MG/ML 200 ML INFUS..BTL INJ ONE (17:54)
[2021-03-01] MEDS ORDERED: DEXTROSE 50% SYRINGE 50 ML IV PRN (19:30)
[2021-03-01 20:39] VITALS: BP 122/98
[2021-03-01] MEDS: INSULIN REGULAR, HUMAN 100 UNIT/1 ML SQ SCH (20:55)
[2021-03-01 21:00] VITALS: BP 122/98
[2021-03-02] VITALS (8 sets, daily range): BP systolic 119–140; BP diastolic 73–94
[2021-03-02 07:05] LABS: CREATINE KINASE MB 2.2 ng/mL (0-5.0)
[2021-03-02] MEDS: INSULIN REGULAR, HUMAN 100 UNIT/1 ML SQ SCH ×4 (07:30→19:49)
[2021-03-02] MEDS ORDERED: FUROSEMIDE INJ 10 MG/ML 4 ML VIAL IV SCH (09:00)
[2021-03-02] MEDS: FUROSEMIDE INJ 10 MG/ML 4 ML VIAL IV SCH ×2 (09:00→16:47)
[2021-03-02 14:04] LABS: CREATINE KINASE MB 2.2 ng/mL (0-5.0)
[2021-03-03] VITALS: BP 136/91
[2021-03-03 04:00] VITALS: BP 136/86
[2021-03-03 05:04] LABS: BASOPHILS % 0.9 % (0.0-1.0); EOSINOPHILS # (AUTO) 0.1 (0.0-0.4); EOSINOPHILS % 2.6 % (0.0-6.0); HEMATOCRIT 31.8 % (38.2-49.6); HEMOGLOBIN 10.1 g/dL (14.0-18.0); LYMPHOCYTES # (AUTO) 1.3 (1.0-3.2); LYMPHOCYTES % 29.6 % (18.0-39.1); MEAN CORPUSCULAR HEMOGLOBIN 29.8 pg (28-32); MEAN CORPUSCULAR HGB CONC 31.8 g/dL (31-35); MEAN CORPUSCULAR VOLUME 93.8 fL (81-99); MONOCYTES # (AUTO) 0.8 (0.2-0.8); MONOCYTES % 17.7 % (4.4-11.3); NEUTROPHILS # (AUTO) 2.2 (2.1-6.9); PLATELET COUNT 277 x10e3/uL (140-360); RED BLOOD COUNT 3.39 x10e6/uL (4.3-5.7); RED CELL DISTRIBUTION WIDTH 14.1 % (11.7-14.4)
[2021-03-03 05:48] LABS: ANION GAP 16.5 mmol/L (8-16); CALCIUM 8.8 mg/dL (8.4-10.2); CREATININE, SERUM 1.63 mg/dL (0.72-1.25); POTASSIUM 3.5 mmol/L (3.5-5.1)
[2021-03-03 06:08] LABS: INR 1.07; PROTHROMBIN TIME 14.3 seconds (11.9-14.5)
[2021-03-03 06:09] LABS: PARTIAL THROMBOPLASTIN TIME 36.3 seconds (23.8-35.5)
[2021-03-03] MEDS: INSULIN REGULAR, HUMAN 100 UNIT/1 ML SQ SCH ×2 (07:30→13:01)
[2021-03-03 07:38] VITALS: BP 149/87
[2021-03-03 08:46] VITALS: BP 149/87
[2021-03-03] MEDS ORDERED: METOPROLOL TARTRATE 50 MG TAB PO SCH (09:00)
[2021-03-03] MEDS ORDERED: SIMVASTATIN 40 MG TAB PO SCH (09:00)
[2021-03-03] MEDS ORDERED: VALSARTAN/SACUBITRIL 24MG/26MG 1 EA TAB PO SCH (09:00)
[2021-03-03] MEDS: FUROSEMIDE INJ 10 MG/ML 4 ML VIAL IV SCH (09:03)
[2021-03-03 11:44] VITALS: BP 104/63
[2021-03-03 13:08] VITALS: BP 114/72
[2021-03-03 14:23] LABS: BODY FLUID APPEARANCE SL.CLOUDY; BODY FLUID COLOR YELLOW; BODY FLUID TYPE PLEURAL
[2021-03-03 14:24] LABS: RBC,BODY FLUID < 2000 cells/uL; WBC,BODY FLUID 266 cells/uL
[2021-03-03 15:34] LABS: LYMPHOCYTES,BODY FLUID 83 %; MONO/MACROPHG,BODY FLUID 9 %; NEUTROPHILS,BODY FLUID 7 %; OTHER CELLS,BODY FLUID 1 %
== END 2021-03-03 14:35 | disposition home or self-care (01) | DRG 291 ==
LOC: ER 14:21 → ERHOLD 19:22 → MED/SURG2 20:41
PROVIDERS: ADMIT Internal Medicine; ATTEND Internal Medicine
PROC: 0W993ZZ Drainage of Right Pleural Cavity, Percutaneous Approach (ICD-10-PCS; principal; 2021-03-03)
DX: I13.0 Hypertensive heart and chronic kidney disease with heart failure and stage 1 through stage 4 chronic kidney disease, or unspecified chronic kidney disease (principal); I50.23 Acute on chronic systolic (congestive) heart failure; N17.9 Acute kidney failure, unspecified; E11.22 Type 2 diabetes mellitus with diabetic chronic kidney disease; N18.9 Chronic kidney disease, unspecified; E78.5 Hyperlipidemia, unspecified; I25.2 Old myocardial infarction; Z95.1 Presence of aortocoronary bypass graft; Z95.5 Presence of coronary angioplasty implant and graft; Z89.422 Acquired absence of other left toe(s); Z79.01 Long term (current) use of anticoagulants; Z20.822 Contact with and (suspected) exposure to COVID-19; I25.10 Atherosclerotic heart disease of native coronary artery without angina pectoris; Z95.810 Presence of automatic (implantable) cardiac defibrillator; Z99.81 Dependence on supplemental oxygen
CPT/HCPCS: 32555; 36415; 71045; 71260; 74470; 76604; 80048; 80053; 82550; 82553; 82948; 83615; 83880; 84157; 84484; 85025; 85610; 85730; 87070; 87205; 88112; 88305; 89051; 93005; 93306; 99284; J1817; J1940; Q9967; U0002

== ENCOUNTER → 2021-03-05 | Outpatient (CLI) | payer MEDICARE ==
[2021-03-05 16:59] LABS: BODY FLUID APPEARANCE SL.CLOUDY; BODY FLUID COLOR STRAW; BODY FLUID TYPE PLEURAL
[2021-03-05 17:07] LABS: RBC,BODY FLUID < 2000 cells/uL; WBC,BODY FLUID 209 cells/uL
[2021-03-05 20:57] LABS: LYMPHOCYTES,BODY FLUID 10 %; MONO/MACROPHG,BODY FLUID 73 %; NEUTROPHILS,BODY FLUID 14 %; OTHER CELLS,BODY FLUID 3 %
== END ==
LOC: US 08:31
PROVIDERS: ATTEND Internal Medicine
DX: J90 Pleural effusion, not elsewhere classified (principal); R06.02 Shortness of breath
CPT/HCPCS: 32555; 36415; 71045; 83615; 84157; 89051

== ENCOUNTER → 2021-04-04 | Outpatient (CLI) | payer MEDICARE | LOC: US 10:29 | PROVIDERS: ATTEND Internal Medicine Pulmonary Disease | DX: J90 Pleural effusion, not elsewhere classified (principal) | CPT/HCPCS: 76604 ==

== ENCOUNTER → 2021-04-10 | Outpatient (CLI) | payer MEDICARE ==
[2021-04-10 11:54] LABS: HEMOGLOBIN 10.4 g/dL (14.0-18.0)
[2021-04-10 12:09] LABS: INR 1.08; PROTHROMBIN TIME 14.9 seconds (11.9-14.5)
[2021-04-10 12:10] LABS: PARTIAL THROMBOPLASTIN TIME 37.6 seconds (23.8-35.5)
== END ==
LOC: US 11:24
PROVIDERS: ATTEND Internal Medicine
DX: J90 Pleural effusion, not elsewhere classified (principal)
CPT/HCPCS: 32555; 36415; 71045; 76604; 85014; 85049; 85610; 85730

== ENCOUNTER 2021-08-11 16:38 | Inpatient (IN) | payer MEDICARE ==
[~2021-08-11] VITALS: Ht 203.2 cm; Wt 94.3 kg
[2021-08-11 17:08] LABS: BASOPHILS # (AUTO) 0.1 (0.0-0.1); BASOPHILS % 0.7 % (0.0-1.0); EOSINOPHILS # (AUTO) 0.4 (0.0-0.4); EOSINOPHILS % 3.6 % (0.0-6.0); HEMATOCRIT 31.9 % (38.2-49.6); HEMOGLOBIN 10.5 g/dL (14.0-18.0); LYMPHOCYTES # (AUTO) 1.5 (1.0-3.2); LYMPHOCYTES % 14.2 % (18.0-39.1); MEAN CORPUSCULAR HEMOGLOBIN 28.7 pg (28-32); MEAN CORPUSCULAR HGB CONC 32.9 g/dL (31-35); MEAN CORPUSCULAR VOLUME 87.2 fL (81-99); MONOCYTES # (AUTO) 1.1 (0.2-0.8); MONOCYTES % 10.3 % (4.4-11.3); NEUTROPHILS # (AUTO) 7.3 (2.1-6.9); NEUTROPHILS % 70.7 % (38.7-80.0); PLATELET COUNT 363 x10e3/uL (140-360); RED BLOOD COUNT 3.66 x10e6/uL (4.3-5.7); RED CELL DISTRIBUTION WIDTH 14.2 % (11.7-14.4)
[2021-08-11 17:20] LABS: ALBUMIN 3.3 g/dL (3.5-5.0); ALBUMIN/GLOBULIN RATIO 0.7 (0.8-2.0); ANION GAP 17.3 mmol/L (8-16); CALCIUM 9.3 mg/dL (8.4-10.2); CREATININE, SERUM 1.61 mg/dL (0.72-1.25); POTASSIUM 4.3 mmol/L (3.5-5.1)
[2021-08-11 17:26] LABS: CREATINE KINASE MB 3.3 ng/mL (0-5.0)
[2021-08-11] MEDS ORDERED: FUROSEMIDE INJ 10 MG/ML 4 ML VIAL IV ONE ×2 (18:00→20:15)
[2021-08-11] MEDS ORDERED: ENOXAPARIN SODIUM INJ 100 MG/ML SYR SC STA (18:18)
[2021-08-11] MEDS ORDERED: ASPIRIN 81 MG CHEW TAB PO ONE (18:30)
[2021-08-11] MEDS ORDERED: ONDANSETRON HCL INJ 2MG/ML 2ML 2 MG/ML VIAL IV PRN (18:30)
[2021-08-11] MEDS ORDERED: SODIUM CHLORIDE FLUSH 10 ML SYR INJ PRN (18:30)
[2021-08-11 20:22] VITALS: BP 138/79
[2021-08-11] MEDS ORDERED: DEXTROSE 50% SYRINGE 50 ML IV PRN (20:30)
[2021-08-11 21:37] VITALS: BP 138/79
[2021-08-11 22:00] VITALS: BP 138/79
[2021-08-11] MEDS: INSULIN REGULAR, HUMAN 100 UNIT/1 ML SQ SCH (22:00)
[2021-08-11] MEDS ORDERED: Vancomycin IV 1 GM in SODIUM CHLORIDE 0.9% 250ML 250 ML IV SCH (23:30)
[2021-08-12] VITALS (7 sets, daily range): BP systolic 101–132; BP diastolic 50–76
[2021-08-12 05:44] LABS: BASOPHILS # (AUTO) 0.1 (0.0-0.1); EOSINOPHILS # (AUTO) 0.5 (0.0-0.4); EOSINOPHILS % 7.1 % (0.0-6.0); HEMATOCRIT 30.3 % (38.2-49.6); HEMOGLOBIN 9.9 g/dL (14.0-18.0); LYMPHOCYTES # (AUTO) 1.9 (1.0-3.2); LYMPHOCYTES % 25.6 % (18.0-39.1); MEAN CORPUSCULAR HGB CONC 32.7 g/dL (31-35); MEAN CORPUSCULAR VOLUME 85.8 fL (81-99); MONOCYTES # (AUTO) 0.9 (0.2-0.8); MONOCYTES % 12.5 % (4.4-11.3); NEUTROPHILS # (AUTO) 3.9 (2.1-6.9); NEUTROPHILS % 53.5 % (38.7-80.0); PLATELET COUNT 320 x10e3/uL (140-360); RED BLOOD COUNT 3.53 x10e6/uL (4.3-5.7)
[2021-08-12 06:08] LABS: ANION GAP 13.7 mmol/L (8-16); CREATININE, SERUM 1.53 mg/dL (0.72-1.25); POTASSIUM 3.7 mmol/L (3.5-5.1)
[2021-08-12 06:35] LABS: CREATINE KINASE MB 2.7 ng/mL (0-5.0)
[2021-08-12] MEDS: INSULIN REGULAR, HUMAN 100 UNIT/1 ML SQ SCH ×5 (07:30→21:08)
[2021-08-12] MEDS ORDERED: ASPIRIN 81 MG ENTERIC COATED PO SCH (09:00)
[2021-08-12] MEDS: METOPROLOL TARTRATE 50 MG TAB PO SCH ×2 (09:00→17:00)
[2021-08-12] MEDS ORDERED: Vancomycin IV 1 GM in SODIUM CHLORIDE 0.9% 250ML 250 ML IV ONE ×2 (09:00→12:00)
[2021-08-12] MEDS ORDERED: FUROSEMIDE INJ 10 MG/ML 4 ML VIAL IV SCH (09:00)
[2021-08-12] MEDS: TICAGRELOR 90 MG TABLET PO SCH ×2 (09:00→18:02)
[2021-08-12] MEDS ORDERED: Vancomycin IV 1 GM in SODIUM CHLORIDE 0.9% 250ML 250 ML IV SCH (09:00)
[2021-08-12] MEDS ORDERED: SIMVASTATIN 20 MG TAB PO SCH (09:00)
[2021-08-12] MEDS: FUROSEMIDE INJ 10 MG/ML 4 ML VIAL IV SCH ×2 (10:00→18:02)
[2021-08-12 15:02] LABS: BODY FLUID APPEARANCE SL.CLOUDY; BODY FLUID COLOR YELLOW; BODY FLUID TYPE PLEURAL; RBC,BODY FLUID 1000 cells/uL; WBC,BODY FLUID 378 cells/uL
[2021-08-12 16:52] LABS: LYMPHOCYTES,BODY FLUID 6 %; MONO/MACROPHG,BODY FLUID 69 %; NEUTROPHILS,BODY FLUID 25 %
[2021-08-13] MEDS ORDERED: COLLAGENASE 5 GM TUBE TP SCH (09:00)
== END 2021-08-12 21:25 | disposition home or self-care (01) | DRG 291 ==
LOC: ER 16:42 → ERHOLD 18:19 → MED/SURG 19:38
PROVIDERS: ADMIT Internal Medicine; ATTEND Internal Medicine
PROC: 0W9B3ZZ Drainage of Left Pleural Cavity, Percutaneous Approach (ICD-10-PCS; principal; 2021-08-12)
DX: I13.0 Hypertensive heart and chronic kidney disease with heart failure and stage 1 through stage 4 chronic kidney disease, or unspecified chronic kidney disease (principal); I50.23 Acute on chronic systolic (congestive) heart failure; J91.8 Pleural effusion in other conditions classified elsewhere; N18.9 Chronic kidney disease, unspecified; E11.22 Type 2 diabetes mellitus with diabetic chronic kidney disease; Z79.899 Other long term (current) drug therapy; I25.10 Atherosclerotic heart disease of native coronary artery without angina pectoris; Z95.1 Presence of aortocoronary bypass graft; E78.5 Hyperlipidemia, unspecified; E11.51 Type 2 diabetes mellitus with diabetic peripheral angiopathy without gangrene; E11.628 Type 2 diabetes mellitus with other skin complications; Z20.822 Contact with and (suspected) exposure to COVID-19
CPT/HCPCS: 32555; 36415; 71045; 71250; 78580; 80048; 80053; 80202; 82550; 82553; 82948; 83615; 83880; 84157; 84484; 85025; 85379; 89051; 93005; 93306; 94799; 99251; 99284; A9540; J1650; J1817; J1940; J3370; J7050; U0002

== ENCOUNTER → 2021-08-11 | Outpatient (CLI) | payer MEDICARE | LOC: RAD 15:26 | PROVIDERS: ATTEND Internal Medicine | DX: R06.00 Dyspnea, unspecified (principal) | CPT/HCPCS: 36415; 71046; 82948 ==

== ENCOUNTER → 2021-10-15 | Outpatient (CLI) | payer MEDICARE ==
[~2021-10-15] MED LIST changes: +ALDACTONE25 MG PO; +AMIODARONE HCL200 MG PO; +BUMETANIDE2 MG PO; +DIGOXIN125 MCG PO; +METOPROLOL TART25 MG PO
[2021-10-15 14:44] LABS: BASOPHILS # (AUTO) 0.1 (0.0-0.1); EOSINOPHILS # (AUTO) 0.2 (0.0-0.4); EOSINOPHILS % 2.2 % (0.0-6.0); HEMATOCRIT 34.4 % (38.2-49.6); HEMOGLOBIN 10.7 g/dL (14.0-18.0); LYMPHOCYTES # (AUTO) 2.7 (1.0-3.2); LYMPHOCYTES % 32.9 % (18.0-39.1); MEAN CORPUSCULAR HEMOGLOBIN 27.9 pg (28-32); MEAN CORPUSCULAR HGB CONC 31.1 g/dL (31-35); MEAN CORPUSCULAR VOLUME 89.8 fL (81-99); MONOCYTES # (AUTO) 1.2 (0.2-0.8); MONOCYTES % 14.8 % (4.4-11.3); NEUTROPHILS % 48.9 % (38.7-80.0); PLATELET COUNT 358 x10e3/uL (140-360); RED BLOOD COUNT 3.83 x10e6/uL (4.3-5.7); RED CELL DISTRIBUTION WIDTH 14.8 % (11.7-14.4)
[2021-10-15 14:58] LABS: INR 1.05; PROTHROMBIN TIME 14.7 seconds (11.9-14.5)
[2021-10-15 15:06] LABS: ALBUMIN 3.3 g/dL (3.5-5.0); ALBUMIN/GLOBULIN RATIO 0.8 (0.8-2.0); ANION GAP 14.7 mmol/L (8-16); CALCIUM 9.3 mg/dL (8.4-10.2); CREATININE, SERUM 1.39 mg/dL (0.72-1.25); POTASSIUM 3.7 mmol/L (3.5-5.1)
[2021-10-15 15:27] LABS: THYROID STIMULATING HORMONE 1.964 uIU/mL (0.350-4.940)
[2021-10-15 16:30] LABS: BODY FLUID APPEARANCE CLOUDY; BODY FLUID COLOR STRAW; BODY FLUID TYPE PLEURAL
[2021-10-15 17:12] LABS: RBC,BODY FLUID 1000 cells/uL; WBC,BODY FLUID 521 cells/uL
[2021-10-15 21:32] LABS: LYMPHOCYTES,BODY FLUID 61 %; MONO/MACROPHG,BODY FLUID 27 %; NEUTROPHILS,BODY FLUID 6 %; OTHER CELLS,BODY FLUID 6 %
== END ==
LOC: US 13:37
PROVIDERS: ATTEND Internal Medicine Pulmonary Disease
DX: J90 Pleural effusion, not elsewhere classified (principal); I50.9 Heart failure, unspecified
CPT/HCPCS: 32555; 36415; 71045; 76604; 80053; 82550; 83036; 83615; 84157; 84436; 84443; 84479; 85025; 85610; 89051

== ENCOUNTER 2021-10-22 11:18 | Inpatient (IN) | payer MEDICARE ==
[~2021-10-22] VITALS: Ht 203.2 cm; Wt 91.6 kg
[~2021-10-22 11:18] MED LIST changes: -ALDACTONE25 MG PO; -AMIODARONE HCL200 MG PO; -BUMETANIDE2 MG PO; -DIGOXIN125 MCG PO; -METOPROLOL TART25 MG PO
[2021-10-22 12:04] LABS: BASOPHILS # (AUTO) 0.1 (0.0-0.1); BASOPHILS % 0.9 % (0.0-1.0); EOSINOPHILS # (AUTO) 0.1 (0.0-0.4); EOSINOPHILS % 1.5 % (0.0-6.0); HEMATOCRIT 33.1 % (38.2-49.6); HEMOGLOBIN 10.2 g/dL (14.0-18.0); LYMPHOCYTES # (AUTO) 1.4 (1.0-3.2); MEAN CORPUSCULAR HEMOGLOBIN 27.6 pg (28-32); MEAN CORPUSCULAR HGB CONC 30.8 g/dL (31-35); MEAN CORPUSCULAR VOLUME 89.7 fL (81-99); MONOCYTES # (AUTO) 0.8 (0.2-0.8); MONOCYTES % 11.2 % (4.4-11.3); NEUTROPHILS # (AUTO) 4.4 (2.1-6.9); NEUTROPHILS % 64.8 % (38.7-80.0); PLATELET COUNT 381 x10e3/uL (140-360); RED BLOOD COUNT 3.69 x10e6/uL (4.3-5.7); RED CELL DISTRIBUTION WIDTH 15.4 % (11.7-14.4)
[2021-10-22] MEDS ORDERED: DEXTROSE 50% SYRINGE 50 ML IV PRN (12:15)
[2021-10-22 12:39] LABS: ALBUMIN 3.5 g/dL (3.5-5.0); ALBUMIN/GLOBULIN RATIO 0.9 (0.8-2.0); ANION GAP 15.5 mmol/L (8-16); CALCIUM 9.4 mg/dL (8.4-10.2); CREATININE, SERUM 1.75 mg/dL (0.72-1.25); POTASSIUM 4.5 mmol/L (3.5-5.1)
[2021-10-22 12:40] LABS: % IRON SATURATION 13 % (15-50); IRON 41 ug/dL (65-175); TOTAL IRON BINDING CAPACITY 311 ug/dL (261-478); TRANSFERRIN 222 mg/dL (174-364)
[2021-10-22 12:43] LABS: INR 1.06; PROTHROMBIN TIME 14.8 seconds (11.9-14.5)
[2021-10-22 12:44] LABS: PARTIAL THROMBOPLASTIN TIME 32.6 seconds (23.8-35.5)
[2021-10-22 12:51] LABS: CREATINE KINASE MB 5.2 ng/mL (0-5.0)
[2021-10-22 13:06] VITALS: BP 135/83
[2021-10-22 13:09] VITALS: BP 135/83
[2021-10-22] MEDS ORDERED: METOPROLOL TART25 MG PO (13:28)
[2021-10-22] MEDS ORDERED: DIGOXIN125 MCG PO (13:30)
[2021-10-22 13:31] VITALS: BP 135/83
[2021-10-22] MEDS: IRON SUCROSE 100 MG in SODIUM CHLORIDE 0.9% 100 ML 100 ML IV SCH (15:23)
[2021-10-22 15:25] VITALS: BP 114/51
[2021-10-22 15:31] LABS: FREE T4 (FREE THYROXINE) 1.19 ng/dL (0.8-1.8); THYROID STIMULATING HORMONE 1.969 uIU/mL (0.350-4.940)
[2021-10-22] MEDS ORDERED: SODIUM CHLORIDE 0.9% 250ML 250 ML ONE (15:41)
[2021-10-22] MEDS: INSULIN LISPRO 100 UNIT/1 ML 3ML VIAL SQ SCH ×3 (16:30→21:00)
[2021-10-22] MEDS ORDERED: INSULIN LISPRO 100 UNIT/1 ML 3ML VIAL SQ SCH ×2 (16:30)
[2021-10-22] MEDS ORDERED: NON-FORMULARY MEDICATION (Sacubitril/Valsartan (Entresto 24 mg-26 mg Tablet) 1 TAB) PO SCH (17:00)
[2021-10-22] MEDS: VALSARTAN/SACUBITRIL 24MG/26MG 1 EA TAB PO SCH (17:05)
[2021-10-22] MEDS: TICAGRELOR 90 MG TABLET PO SCH (17:05)
[2021-10-22] MEDS: METOPROLOL TARTRATE 50 MG TAB PO SCH (17:08)
[2021-10-22] MEDS ORDERED: FUROSEMIDE INJ 10 MG/ML 4 ML VIAL IV ONE (17:15)
[2021-10-22 20:00] VITALS: BP 111/69
[2021-10-22 21:00] VITALS: BP 111/69
[2021-10-22] MEDS: INSULIN GLARGINE 100 UNITS/ML VIAL SQ SCH (21:00)
[2021-10-22] MEDS ORDERED: INSULIN GLARGINE 100 UNITS/ML VIAL SQ SCH (21:00)
[2021-10-23] VITALS (8 sets, daily range): BP systolic 91–123; BP diastolic 59–86
[2021-10-23 05:42] LABS: BASOPHILS # (AUTO) 0.1 (0.0-0.1); BASOPHILS % 0.6 % (0.0-1.0); EOSINOPHILS # (AUTO) 0.2 (0.0-0.4); EOSINOPHILS % 1.9 % (0.0-6.0); HEMATOCRIT 33.1 % (38.2-49.6); HEMOGLOBIN 10.4 g/dL (14.0-18.0); LYMPHOCYTES # (AUTO) 1.5 (1.0-3.2); LYMPHOCYTES % 19.4 % (18.0-39.1); MEAN CORPUSCULAR HEMOGLOBIN 27.7 pg (28-32); MEAN CORPUSCULAR HGB CONC 31.4 g/dL (31-35); MEAN CORPUSCULAR VOLUME 88.3 fL (81-99); MONOCYTES # (AUTO) 1.1 (0.2-0.8); MONOCYTES % 13.7 % (4.4-11.3); PLATELET COUNT 363 x10e3/uL (140-360); RED BLOOD COUNT 3.75 x10e6/uL (4.3-5.7); RED CELL DISTRIBUTION WIDTH 15.3 % (11.7-14.4)
[2021-10-23 06:06] LABS: ANION GAP 17.7 mmol/L (8-16); CALCIUM 8.7 mg/dL (8.4-10.2); CREATININE, SERUM 1.52 mg/dL (0.72-1.25); POTASSIUM 3.7 mmol/L (3.5-5.1)
[2021-10-23] MEDS: INSULIN LISPRO 100 UNIT/1 ML 3ML VIAL SQ SCH ×6 (07:24→20:03)
[2021-10-23] MEDS: PANTOPRAZOLE SOD 40 MG TABEC PO SCH (08:38)
[2021-10-23] MEDS: BUMETANIDE 1 MG TAB PO SCH (08:38)
[2021-10-23] MEDS: SIMVASTATIN 40 MG TAB PO SCH (08:38)
[2021-10-23] MEDS: VALSARTAN/SACUBITRIL 24MG/26MG 1 EA TAB PO SCH ×2 (08:38→17:53)
[2021-10-23] MEDS: SPIRONOLACTONE 25 MG TAB PO SCH (08:38)
[2021-10-23] MEDS: METOPROLOL TARTRATE 50 MG TAB PO SCH ×2 (08:38→17:00)
[2021-10-23] MEDS: TICAGRELOR 90 MG TABLET PO SCH ×2 (08:38→17:53)
[2021-10-23 12:00] LABS: CLARITY,URINE CLEAR (CLEAR); COLOR,URINE YELLOW (YELLOW); KETONES,URINE NEGATIVE (NEGATIVE); LEUKOCYTE ESTERASE ,URINE NEGATIVE (NEGATIVE); NITRITE,URINE NEGATIVE (NEGATIVE); PROTEIN,URINE DIPSTICK NEGATIVE (NEGATIVE); URINE UROBILINOGEN 0.2 mg/dL (0.2 - 1)
[2021-10-23 12:21] LABS: BACTERIA,URINE FEW /HPF; EPITHELIAL CELLS,URINE FEW /LPF; RBC,URINE 0-5 /HPF (0-5); WBC,URINE (MAN) 0-5 /HPF (0-5)
[2021-10-23 12:36] LABS: TOTAL PROTEIN, URINE < 6.8 mg/dL (1-14)
[2021-10-23] MEDS: BALSAM PERU/CASTOR OIL 60 GM OINT...G. TP SCH (14:00)
[2021-10-23] MEDS: COLLAGENASE 5 GM TUBE TP SCH (14:00)
[2021-10-23] MEDS: IRON SUCROSE 100 MG in SODIUM CHLORIDE 0.9% 100 ML 100 ML IV SCH (14:29)
[2021-10-23] MEDS ORDERED: SODIUM CHLORIDE 0.9% 1000ML 1,000 ML ONE (17:14)
[2021-10-23 17:37] LABS: ABG HCO3 30 mmol/L (22-26); ABG PCO2 34 mmHg (35-45); ABG PH 7.55 (7.35-7.45); ABG PO2 96 mmHg (80-105); ABG TCO2 31
[2021-10-23] MEDS ORDERED: AMIODARONE HCL 200 MG TAB PO ONE (18:00)
[2021-10-23] MEDS: INSULIN GLARGINE 100 UNITS/ML VIAL SQ SCH (20:03)
[2021-10-24 00:34] VITALS: BP 88/70
[2021-10-24 04:00] VITALS: BP 112/68
[2021-10-24 07:41] VITALS: BP 115/69
[2021-10-24 07:55] VITALS: BP 115/69
[2021-10-24] MEDS ORDERED: AMIODARONE HCL 200 MG TAB PO SCH (09:00)
[2021-10-24] MEDS: TICAGRELOR 90 MG TABLET PO SCH (09:14)
[2021-10-24] MEDS: SPIRONOLACTONE 25 MG TAB PO SCH (09:14)
[2021-10-24] MEDS: PANTOPRAZOLE SOD 40 MG TABEC PO SCH (09:14)
[2021-10-24] MEDS: INSULIN LISPRO 100 UNIT/1 ML 3ML VIAL SQ SCH ×2 (09:15→10:23)
[2021-10-24] MEDS: VALSARTAN/SACUBITRIL 24MG/26MG 1 EA TAB PO SCH (09:15)
[2021-10-24] MEDS: BALSAM PERU/CASTOR OIL 60 GM OINT...G. TP SCH (09:15)
[2021-10-24] MEDS: SIMVASTATIN 40 MG TAB PO SCH (09:15)
[2021-10-24] MEDS: BUMETANIDE 1 MG TAB PO SCH (09:15)
[2021-10-24] MEDS: METOPROLOL TARTRATE 50 MG TAB PO SCH (09:15)
[2021-10-24] MEDS: COLLAGENASE 5 GM TUBE TP SCH (09:15)
[2021-10-24] MEDS ORDERED: BUMETANIDE2 MG PO (10:19)
[2021-10-24] MEDS ORDERED: ALDACTONE25 MG PO (10:19)
[2021-10-24] MEDS ORDERED: AMIODARONE HCL200 MG PO (10:20)
== END 2021-10-24 10:55 | disposition home or self-care (01) | DRG 291 ==
LOC: ER 11:23 → ERHOLD 11:54 → MED/SURG2 12:56
PROVIDERS: ADMIT Internal Medicine Pulmonary Disease; ATTEND Internal Medicine Pulmonary Disease
PROC: 0W9B3ZZ Drainage of Left Pleural Cavity, Percutaneous Approach (ICD-10-PCS; principal; 2021-10-22)
DX: I13.0 Hypertensive heart and chronic kidney disease with heart failure and stage 1 through stage 4 chronic kidney disease, or unspecified chronic kidney disease (principal); I50.23 Acute on chronic systolic (congestive) heart failure; J90 Pleural effusion, not elsewhere classified; L97.518 Non-pressure chronic ulcer of other part of right foot with other specified severity; N18.30 Chronic kidney disease, stage 3 unspecified; E11.22 Type 2 diabetes mellitus with diabetic chronic kidney disease; I25.5 Ischemic cardiomyopathy; I25.10 Atherosclerotic heart disease of native coronary artery without angina pectoris; D63.1 Anemia in chronic kidney disease; E78.5 Hyperlipidemia, unspecified; E11.51 Type 2 diabetes mellitus with diabetic peripheral angiopathy without gangrene; R00.1 Bradycardia, unspecified; I25.2 Old myocardial infarction; Z95.1 Presence of aortocoronary bypass graft; Z95.810 Presence of automatic (implantable) cardiac defibrillator; Z95.5 Presence of coronary angioplasty implant and graft; Z89.422 Acquired absence of other left toe(s); Z83.3 Family history of diabetes mellitus; Z20.822 Contact with and (suspected) exposure to COVID-19; I70.235 Atherosclerosis of native arteries of right leg with ulceration of other part of foot
CPT/HCPCS: 32555; 36415; 36600; 71045; 71046; 74470; 76705; 80048; 80053; 81001; 82550; 82553; 82728; 82805; 82948; 83036; 83540; 83880; 84156; 84439; 84443; 84466; 84484; 85025; 85610; 85730; 93005; 93306; 94799; 99251; 99284; C1729; J1756; J1940; J7030; J7050; U0002

== ENCOUNTER → 2021-12-08 | Outpatient (CLI) | payer MEDICARE ==
[~2021-12-08] MED LIST changes: +ALDACTONE25 MG PO; +AMIODARONE HCL200 MG PO; +BUMETANIDE2 MG PO; +DIGOXIN125 MCG PO; +METOPROLOL TART25 MG PO
== END ==
LOC: RAD 13:39
PROVIDERS: ATTEND Internal Medicine Pulmonary Disease
DX: Z09 Encounter for follow-up examination after completed treatment for conditions other than malignant neoplasm (principal); J90 Pleural effusion, not elsewhere classified
CPT/HCPCS: 71046

== ENCOUNTER → 2021-12-09 | Outpatient (CLI) | payer MEDICARE ==
[2021-12-09 10:58] LABS: HEMOGLOBIN 11.5 g/dL (14.0-18.0)
[2021-12-09 11:14] LABS: INR 1.06; PROTHROMBIN TIME 14.8 seconds (11.9-14.5)
== END ==
LOC: US 09:52
PROVIDERS: ATTEND Internal Medicine
DX: J90 Pleural effusion, not elsewhere classified (principal)
CPT/HCPCS: 32555; 36415; 71045; 76604; 85014; 85049; 85610; 85730; 87070; 87205

== ENCOUNTER → 2021-12-12 | Outpatient (CLI) | payer MEDICARE ==
[~2021-12-12] MED LIST changes: +LIDOCAINE HCL 1% LOCAL INJ 20 ML VIAL ONE
== END ==
LOC: US 08:46
PROVIDERS: ATTEND Internal Medicine Pulmonary Disease
DX: J90 Pleural effusion, not elsewhere classified (principal)
CPT/HCPCS: 32555; 71045; J2001

== ENCOUNTER → 2022-01-13 | Outpatient (CLI) | payer MEDICARE ==
[~2022-01-13] MED LIST changes: -LIDOCAINE HCL 1% LOCAL INJ 20 ML VIAL ONE
[2022-01-13 13:59] LABS: INR 1.16; PROTHROMBIN TIME 15.8 seconds (11.9-14.5)
[2022-01-13 14:00] LABS: PARTIAL THROMBOPLASTIN TIME 31.1 seconds (23.8-35.5)
== END ==
LOC: US 13:06
PROVIDERS: ATTEND Internal Medicine Pulmonary Disease
DX: J90 Pleural effusion, not elsewhere classified (principal)
CPT/HCPCS: 32555; 36415; 71045; 85014; 85049; 85610; 85730

== ENCOUNTER → 2022-01-16 | Outpatient (CLI) | payer MEDICARE ==
[~2022-01-16] MED LIST changes: +ASPIRIN EC81 MG PO; +PANTOPRAZOLE SO40 MG PO; +SERTRALINE HCL50 MG PO
== END ==
LOC: US 13:35
PROVIDERS: ATTEND Internal Medicine Pulmonary Disease
DX: J90 Pleural effusion, not elsewhere classified (principal)
CPT/HCPCS: 32555; 71045

== ENCOUNTER 2022-01-19 16:18 | Inpatient (IN) | payer MEDICARE ==
[~2022-01-19] VITALS: Ht 203.2 cm; Wt 91.6 kg
[~2022-01-19 16:18] MED LIST changes: -ASPIRIN EC81 MG PO; -PANTOPRAZOLE SO40 MG PO; -SERTRALINE HCL50 MG PO
[2022-01-19] MEDS ORDERED: DEXTROSE 50% SYRINGE 50 ML IV PRN (16:30)
[2022-01-19] MEDS ORDERED: LORATADINE 10 MG TAB PO PRN (16:30)
[2022-01-19] MEDS ORDERED: TRAMADOL HCL 50 MG TAB PO PRN (16:30)
[2022-01-19] MEDS ORDERED: SOD POLYSTYRENE SULFONATE SUSP 15 GM/60 ML BTL PR PRN (16:45)
[2022-01-19] MEDS: TICAGRELOR 90 MG TABLET PO SCH (17:00)
[2022-01-19 17:06] LABS: BASOPHILS # (AUTO) 0.1 (0.0-0.1); BASOPHILS % 0.9 % (0.0-1.0); EOSINOPHILS # (AUTO) 0.1 (0.0-0.4); EOSINOPHILS % 2.4 % (0.0-6.0); HEMOGLOBIN 11.4 g/dL (14.0-18.0); LYMPHOCYTES # (AUTO) 1.1 (1.0-3.2); LYMPHOCYTES % 18.5 % (18.0-39.1); MEAN CORPUSCULAR HEMOGLOBIN 28.1 pg (28-32); MEAN CORPUSCULAR HGB CONC 31.7 g/dL (31-35); MEAN CORPUSCULAR VOLUME 88.9 fL (81-99); MONOCYTES # (AUTO) 0.7 (0.2-0.8); MONOCYTES % 11.4 % (4.4-11.3); NEUTROPHILS # (AUTO) 3.9 (2.1-6.9); NEUTROPHILS % 66.6 % (38.7-80.0); PLATELET COUNT 316 x10e3/uL (140-360); RED BLOOD COUNT 4.05 x10e6/uL (4.3-5.7); RED CELL DISTRIBUTION WIDTH 15.9 % (11.7-14.4)
[2022-01-19] MEDS: INSULIN LISPRO 100 UNIT/1 ML 3ML VIAL SQ SCH ×2 (17:13→20:39)
[2022-01-19] MEDS: INSULIN REGULAR, HUMAN 100 UNIT/1 ML SQ SCH (17:14)
[2022-01-19 17:25] LABS: ALBUMIN 3.4 g/dL (3.5-5.0); ALBUMIN/GLOBULIN RATIO 0.9 (0.8-2.0); ANION GAP 18.6 mmol/L (8-16); CALCIUM 9.2 mg/dL (8.4-10.2); CREATININE, SERUM 1.39 mg/dL (0.72-1.25); POTASSIUM 4.6 mmol/L (3.5-5.1)
[2022-01-19 17:47] LABS: % IRON SATURATION 14 % (15-50); IRON 45 ug/dL (65-175); TOTAL IRON BINDING CAPACITY 312 ug/dL (261-478); TRANSFERRIN 223 mg/dL (174-364)
[2022-01-19] MEDS ORDERED: PANTOPRAZOLE SO40 MG PO (17:49)
[2022-01-19] MEDS ORDERED: SERTRALINE HCL50 MG PO (17:49)
[2022-01-19 20:00] VITALS: BP 115/74
[2022-01-19 20:30] VITALS: BP 115/74
[2022-01-19] MEDS: FUROSEMIDE INJ 10 MG/ML 4 ML VIAL IV SCH (20:40)
[2022-01-19] MEDS: INSULIN GLARGINE 100 UNITS/ML VIAL SQ SCH (20:40)
[2022-01-19] MEDS: SIMVASTATIN 20 MG TAB PO SCH (20:41)
[2022-01-19] MEDS: HEPARIN SOD (PORCINE) 5,000 UNIT/ML VIAL SC SCH (21:13)
[2022-01-19] MEDS ORDERED: HEPARIN SOD (PORCINE) 5,000 UNIT/ML VIAL ONE (21:17)
[2022-01-20 01:25] VITALS: BP 113/71
[2022-01-20] MEDS: INSULIN LISPRO 100 UNIT/1 ML 3ML VIAL SQ SCH ×4 (07:30→19:57)
[2022-01-20 07:57] VITALS: BP 115/74
[2022-01-20] MEDS ORDERED: BUMETANIDE 1 MG TAB PO SCH (09:00)
[2022-01-20] MEDS ORDERED: VALSARTAN/SACUBITRIL 24MG/26MG 1 EA TAB PO SCH (09:00)
[2022-01-20] MEDS ORDERED: SPIRONOLACTONE 25 MG TAB PO SCH (09:00)
[2022-01-20] MEDS ORDERED: METOPROLOL TARTRATE 25 MG TAB PO SCH (09:00)
[2022-01-20] MEDS ORDERED: AMIODARONE HCL 200 MG TAB PO SCH (09:00)
[2022-01-20] MEDS: FUROSEMIDE INJ 10 MG/ML 4 ML VIAL IV SCH ×2 (09:47→16:50)
[2022-01-20] MEDS: TICAGRELOR 90 MG TABLET PO SCH (09:48)
[2022-01-20] MEDS: ASPIRIN 81 MG ENTERIC COATED PO SCH (09:48)
[2022-01-20] MEDS: SPIRONOLACTONE 25 MG TAB PO SCH (09:48)
[2022-01-20] MEDS: DIGOXIN 0.125 MG TAB PO SCH (09:49)
[2022-01-20] MEDS: METOPROLOL TARTRATE 50 MG TAB PO SCH ×2 (09:49→16:54)
[2022-01-20] MEDS: AMIODARONE HCL 200 MG TAB PO SCH ×2 (09:49→16:49)
[2022-01-20] MEDS: VALSARTAN/SACUBITRIL 24MG/26MG 1 EA TAB PO SCH ×2 (09:50→16:54)
[2022-01-20] MEDS: HEPARIN SOD (PORCINE) 5,000 UNIT/ML VIAL SC SCH ×2 (09:57→20:11)
[2022-01-20] MEDS: INSULIN REGULAR, HUMAN 100 UNIT/1 ML SQ SCH ×3 (09:57→16:14)
[2022-01-20] MEDS ORDERED: SODIUM CHLORIDE 0.9% 100 ML ONE (12:17)
[2022-01-20 12:28] VITALS: BP 100/72
[2022-01-20] MEDS: IRON SUCROSE 100 MG in SODIUM CHLORIDE 0.9% 100 ML IV SCH (12:31)
[2022-01-20 16:18] VITALS: BP 105/70
[2022-01-20] MEDS: INSULIN GLARGINE 100 UNITS/ML VIAL SQ SCH (19:59)
[2022-01-20 20:00] VITALS: BP 91/64
[2022-01-20] MEDS: SIMVASTATIN 20 MG TAB PO SCH (20:05)
[2022-01-20 20:50] VITALS: BP 91/64
[2022-01-20 21:49] LABS: CLARITY,URINE CLEAR (CLEAR); COLOR,URINE YELLOW (YELLOW); KETONES,URINE NEGATIVE (NEGATIVE); LEUKOCYTE ESTERASE ,URINE NEGATIVE (NEGATIVE); NITRITE,URINE NEGATIVE (NEGATIVE); PROTEIN,URINE DIPSTICK NEGATIVE (NEGATIVE); URINE UROBILINOGEN 0.2 mg/dL (0.2 - 1)
[2022-01-20 21:59] LABS: AMORPHOUS SEDIMENT,URINE FEW (FEW); BACTERIA,URINE FEW /HPF; EPITHELIAL CELLS,URINE FEW /LPF; RBC,URINE 0-5 /HPF (0-5); WBC,URINE (MAN) 0-5 /HPF (0-5)
[2022-01-21 01:47] VITALS: BP 98/66
[2022-01-21 05:12] VITALS: BP 107/63
[2022-01-21] MEDS: INSULIN REGULAR, HUMAN 100 UNIT/1 ML SQ SCH ×2 (07:30→11:30)
[2022-01-21] MEDS: INSULIN LISPRO 100 UNIT/1 ML 3ML VIAL SQ SCH ×2 (07:30→11:30)
[2022-01-21 08:00] VITALS: BP 110/75
[2022-01-21 08:52] VITALS: BP 116/70
[2022-01-21 08:53] VITALS: BP 110/75
[2022-01-21] MEDS: FUROSEMIDE INJ 10 MG/ML 4 ML VIAL IV SCH (09:00)
[2022-01-21] MEDS: HEPARIN SOD (PORCINE) 5,000 UNIT/ML VIAL SC SCH (09:00)
[2022-01-21] MEDS ORDERED: Insulin Glargine SQ (09:52)
[2022-01-21] MEDS ORDERED: DIGOXIN125 MCG PO (09:52)
[2022-01-21] MEDS ORDERED: Insulin Lispro SQ (09:52)
[2022-01-21] MEDS ORDERED: ASPIRIN EC81 MG PO (09:52)
[2022-01-21] MEDS: IRON SUCROSE 100 MG in SODIUM CHLORIDE 0.9% 100 ML IV SCH (11:09)
[2022-01-21] MEDS: VALSARTAN/SACUBITRIL 24MG/26MG 1 EA TAB PO SCH (11:10)
[2022-01-21] MEDS: METOPROLOL TARTRATE 50 MG TAB PO SCH (11:11)
[2022-01-21] MEDS: ASPIRIN 81 MG ENTERIC COATED PO SCH (11:12)
[2022-01-21] MEDS: SPIRONOLACTONE 25 MG TAB PO SCH (11:12)
[2022-01-21] MEDS: DIGOXIN 0.125 MG TAB PO SCH (11:13)
[2022-01-21] MEDS: AMIODARONE HCL 200 MG TAB PO SCH (11:15)
[2022-01-21 12:14] VITALS: BP 99/60
[2022-01-21 14:32] LABS: CHOL/HDL RATIO 4.9 (3.9-4.7)
== END 2022-01-21 14:11 | disposition home or self-care (01) | DRG 199 ==
LOC: ER 16:25 → ERHOLD 16:27 → ER 18:43 → MED/SURG 19:22 → OBSVTOIN 01-20 08:29
PROVIDERS: ADMIT Internal Medicine Pulmonary Disease; ATTEND Internal Medicine Pulmonary Disease
DX: J95.811 Postprocedural pneumothorax (principal); I50.23 Acute on chronic systolic (congestive) heart failure; I13.0 Hypertensive heart and chronic kidney disease with heart failure and stage 1 through stage 4 chronic kidney disease, or unspecified chronic kidney disease; I25.10 Atherosclerotic heart disease of native coronary artery without angina pectoris; E78.5 Hyperlipidemia, unspecified; E11.22 Type 2 diabetes mellitus with diabetic chronic kidney disease; N18.30 Chronic kidney disease, stage 3 unspecified; Z95.1 Presence of aortocoronary bypass graft; Z95.0 Presence of cardiac pacemaker; Z95.5 Presence of coronary angioplasty implant and graft; E11.51 Type 2 diabetes mellitus with diabetic peripheral angiopathy without gangrene; D64.9 Anemia, unspecified; Z20.822 Contact with and (suspected) exposure to COVID-19; Z89.422 Acquired absence of other left toe(s); Z89.421 Acquired absence of other right toe(s); E11.42 Type 2 diabetes mellitus with diabetic polyneuropathy; Z79.4 Long term (current) use of insulin
CPT/HCPCS: 36415; 71045; 71046; 80053; 80061; 80162; 81001; 82948; 83540; 83880; 84466; 84484; 85025; 93005; 94799; 99251; 99284; G0378; J1644; J1756; J1817; J1940; J7050

== ENCOUNTER → 2022-01-19 | Outpatient (CLI) | payer MEDICARE ==
[2022-01-19 14:09] LABS: INR 1.11; PARTIAL THROMBOPLASTIN TIME 30.6 seconds (23.8-35.5); PROTHROMBIN TIME 15.3 seconds (11.9-14.5)
[2022-01-19 14:15] LABS: ANION GAP 20.9 mmol/L (8-16); BASOPHILS # (AUTO) 0.1 (0.0-0.1); BASOPHILS % 0.7 % (0.0-1.0); CALCIUM 9.1 mg/dL (8.4-10.2); CREATININE, SERUM 1.47 mg/dL (0.72-1.25); EOSINOPHILS # (AUTO) 0.1 (0.0-0.4); EOSINOPHILS % 1.8 % (0.0-6.0); HEMATOCRIT 37.5 % (38.2-49.6); LYMPHOCYTES # (AUTO) 1.4 (1.0-3.2); LYMPHOCYTES % 19.6 % (18.0-39.1); MEAN CORPUSCULAR HEMOGLOBIN 28.3 pg (28-32); MEAN CORPUSCULAR VOLUME 88.4 fL (81-99); MONOCYTES # (AUTO) 0.9 (0.2-0.8); MONOCYTES % 12.7 % (4.4-11.3); NEUTROPHILS # (AUTO) 4.8 (2.1-6.9); NEUTROPHILS % 64.9 % (38.7-80.0); PLATELET COUNT 332 x10e3/uL (140-360); POTASSIUM 4.9 mmol/L (3.5-5.1); RED BLOOD COUNT 4.24 x10e6/uL (4.3-5.7); RED CELL DISTRIBUTION WIDTH 15.9 % (11.7-14.4)
== END ==
LOC: US 12:19
PROVIDERS: ATTEND Internal Medicine Pulmonary Disease
DX: J90 Pleural effusion, not elsewhere classified (principal)
CPT/HCPCS: 32555; 36415; 71045; 76604; 80048; 82948; 83880; 85025; 85610; 85730; 93005

== ENCOUNTER → 2022-02-16 | Outpatient (CLI) | payer MEDICARE ==
[~2022-02-16] MED LIST changes: +ASPIRIN EC81 MG PO; +PANTOPRAZOLE SO40 MG PO; +SERTRALINE HCL50 MG PO
== END ==
LOC: US 12:11
PROVIDERS: ATTEND Internal Medicine
DX: J90 Pleural effusion, not elsewhere classified (principal)
CPT/HCPCS: 32555; 71045; 76604

== ENCOUNTER → 2022-02-17 | Outpatient (CLI) | payer MEDICARE | LOC: US 11:07 | PROVIDERS: ATTEND Internal Medicine | DX: J90 Pleural effusion, not elsewhere classified (principal) | CPT/HCPCS: 32555; 71045 ==

== ENCOUNTER → 2022-03-05 | Outpatient (CLI) | payer MEDICARE ==
[~2022-03-05] MED LIST changes: +LIDOCAINE 1% 10 ML MULTIDOSE VIAL IJ ONE
[2022-03-05 14:43] LABS: BASOPHILS % 0.7 % (0.0-1.0); EOSINOPHILS # (AUTO) 0.1 (0.0-0.4); EOSINOPHILS % 0.9 % (0.0-6.0); HEMATOCRIT 41.2 % (38.2-49.6); LYMPHOCYTES # (AUTO) 0.7 (1.0-3.2); LYMPHOCYTES % 13.2 % (18.0-39.1); MEAN CORPUSCULAR HEMOGLOBIN 28.1 pg (28-32); MEAN CORPUSCULAR HGB CONC 31.6 g/dL (31-35); MEAN CORPUSCULAR VOLUME 89.2 fL (81-99); MONOCYTES # (AUTO) 0.7 (0.2-0.8); MONOCYTES % 13.2 % (4.4-11.3); NEUTROPHILS % 71.6 % (38.7-80.0); PLATELET COUNT 224 x10e3/uL (140-360); RED BLOOD COUNT 4.62 x10e6/uL (4.3-5.7)
[2022-03-05 14:48] LABS: INR 1.19; PARTIAL THROMBOPLASTIN TIME 31.4 seconds (23.8-35.5); PROTHROMBIN TIME 16.1 seconds (11.9-14.5)
[2022-03-05 14:52] LABS: ANION GAP 20.5 mmol/L (8-16); CREATININE, SERUM 2.37 mg/dL (0.72-1.25); POTASSIUM 4.5 mmol/L (3.5-5.1)
== END ==
LOC: US 13:37
PROVIDERS: ATTEND Internal Medicine
DX: I50.9 Heart failure, unspecified (principal); J90 Pleural effusion, not elsewhere classified
CPT/HCPCS: 32555; 36415; 71045; 80048; 85025; 85610; 85730

== ENCOUNTER → 2022-03-06 | Outpatient (CLI) | payer MEDICARE ==
[~2022-03-06] MED LIST changes: -LIDOCAINE 1% 10 ML MULTIDOSE VIAL IJ ONE
== END ==
LOC: US 10:22
PROVIDERS: ATTEND Internal Medicine Pulmonary Disease
DX: I50.9 Heart failure, unspecified (principal); J90 Pleural effusion, not elsewhere classified
CPT/HCPCS: 32555; 71045

== ENCOUNTER → 2022-03-13 | Outpatient (CLI) | payer MEDICARE | LOC: US 10:36 | PROVIDERS: ATTEND Internal Medicine | DX: J90 Pleural effusion, not elsewhere classified (principal) | CPT/HCPCS: 32555; 71045 ==

== ENCOUNTER → 2022-03-16 | Outpatient (CLI) | payer MEDICARE | LOC: US 11:29 | PROVIDERS: ATTEND Internal Medicine | DX: J90 Pleural effusion, not elsewhere classified (principal) | CPT/HCPCS: 32555; 71045 ==

== ENCOUNTER → 2022-03-30 | Outpatient (CLI) | payer MEDICARE | LOC: US 10:19 | PROVIDERS: ATTEND Internal Medicine Pulmonary Disease | DX: J90 Pleural effusion, not elsewhere classified (principal) | CPT/HCPCS: 32555; 71045 ==

== ENCOUNTER → 2022-03-31 | Outpatient (CLI) | payer MEDICARE | LOC: US 10:09 | PROVIDERS: ATTEND Internal Medicine Pulmonary Disease | DX: J90 Pleural effusion, not elsewhere classified (principal) | CPT/HCPCS: 32555; 71045 ==

== ENCOUNTER → 2022-04-13 | Outpatient (CLI) | payer MEDICARE ==
[2022-04-13 10:55] LABS: INR 1.1; PROTHROMBIN TIME 15.2 seconds (11.9-14.5)
[2022-04-13 10:56] LABS: PARTIAL THROMBOPLASTIN TIME 30.9 seconds (23.8-35.5)
== END ==
LOC: US 09:51
PROVIDERS: ATTEND Internal Medicine Pulmonary Disease
DX: I50.22 Chronic systolic (congestive) heart failure (principal)
CPT/HCPCS: 32555; 36415; 71045; 85014; 85049; 85610; 85730

== ENCOUNTER → 2022-04-15 | Outpatient (CLI) | payer MEDICARE | LOC: US 13:08 | PROVIDERS: ATTEND Internal Medicine Pulmonary Disease | DX: I50.22 Chronic systolic (congestive) heart failure (principal) | CPT/HCPCS: 32555; 71045 ==

== ENCOUNTER → 2022-04-22 | Outpatient (CLI) | payer MEDICARE | LOC: US 10:12 | PROVIDERS: ATTEND Internal Medicine Pulmonary Disease | DX: I50.22 Chronic systolic (congestive) heart failure (principal) | CPT/HCPCS: 32555; 71045 ==

== ENCOUNTER → 2022-04-23 | Outpatient (CLI) | payer MEDICARE | LOC: US 12:14 | PROVIDERS: ATTEND Internal Medicine Pulmonary Disease | DX: J90 Pleural effusion, not elsewhere classified (principal) | CPT/HCPCS: 32555; 71045 ==

== ENCOUNTER → 2022-06-05 | Outpatient (CLI) | payer MEDICARE ==
[~2022-06-05] MED LIST changes: +LIDOCAINE HCL 1% 30ML-PF VIAL ONE
== END ==
LOC: US 12:41
PROVIDERS: ATTEND Internal Medicine
DX: J90 Pleural effusion, not elsewhere classified (principal)
CPT/HCPCS: 32555; 71045; J2001

== ENCOUNTER → 2022-06-08 | Outpatient (CLI) | payer MEDICARE ==
[~2022-06-08] MED LIST changes: -LIDOCAINE HCL 1% 30ML-PF VIAL ONE
== END ==
LOC: US 13:29
PROVIDERS: ATTEND Internal Medicine
DX: J90 Pleural effusion, not elsewhere classified (principal)
CPT/HCPCS: 32555; 71045

== ENCOUNTER → 2022-06-10 | Outpatient (CLI) | payer MEDICARE | LOC: US 12:32 | PROVIDERS: ATTEND Internal Medicine | DX: J90 Pleural effusion, not elsewhere classified (principal) | CPT/HCPCS: 32555; 71045 ==

== ENCOUNTER → 2022-06-16 | Outpatient (CLI) | payer MEDICARE | LOC: US 12:12 | PROVIDERS: ATTEND Internal Medicine | DX: J90 Pleural effusion, not elsewhere classified (principal) | CPT/HCPCS: 32555; 71045 ==

== ENCOUNTER → 2022-06-18 | Outpatient (CLI) | payer MEDICARE | LOC: US 11:33 | PROVIDERS: ATTEND Internal Medicine | DX: J90 Pleural effusion, not elsewhere classified (principal) | CPT/HCPCS: 32555; 71045 ==

== ENCOUNTER → 2022-06-23 | Outpatient (CLI) | payer MEDICARE ==
[2022-06-23 14:06] LABS: HEMOGLOBIN 14.5 g/dL (14.0-18.0)
[2022-06-23 14:15] LABS: INR 1.06
== END ==
LOC: US 13:18
PROVIDERS: ATTEND Internal Medicine
DX: J90 Pleural effusion, not elsewhere classified (principal)
CPT/HCPCS: 32555; 36415; 71045; 85014; 85049; 85610; 85730; C1729

== ENCOUNTER → 2022-06-25 | Outpatient (CLI) | payer MEDICARE | LOC: US 13:18 | PROVIDERS: ATTEND Internal Medicine | DX: J90 Pleural effusion, not elsewhere classified (principal) | CPT/HCPCS: 32555; 71045 ==

== ENCOUNTER → 2022-06-30 | Outpatient (CLI) | payer MEDICARE | LOC: US 13:19 | PROVIDERS: ATTEND Internal Medicine | DX: J90 Pleural effusion, not elsewhere classified (principal) | CPT/HCPCS: 32555; 71045 ==

== ENCOUNTER → 2022-07-02 | Outpatient (CLI) | payer MEDICARE | LOC: US 13:23 | PROVIDERS: ATTEND Internal Medicine | DX: J90 Pleural effusion, not elsewhere classified (principal) | CPT/HCPCS: 32555; 71045 ==

== ENCOUNTER → 2022-07-08 | Outpatient (CLI) | payer MEDICARE | LOC: US 13:41 | PROVIDERS: ATTEND Internal Medicine | DX: J90 Pleural effusion, not elsewhere classified (principal) | CPT/HCPCS: 32555; 71045 ==

== ENCOUNTER → 2022-07-09 | Outpatient (CLI) | payer MEDICARE | LOC: US 13:04 | PROVIDERS: ATTEND Internal Medicine | DX: J90 Pleural effusion, not elsewhere classified (principal) | CPT/HCPCS: 32555; 71045; C1729 ==

== ENCOUNTER → 2022-07-15 | Outpatient (CLI) | payer MEDICARE | LOC: US 12:44 | PROVIDERS: ATTEND Internal Medicine | DX: J90 Pleural effusion, not elsewhere classified (principal) | CPT/HCPCS: 32555; 71045 ==

== ENCOUNTER → 2022-07-16 | Outpatient (CLI) | payer MEDICARE | LOC: US 12:35 | PROVIDERS: ATTEND Internal Medicine | DX: J90 Pleural effusion, not elsewhere classified (principal) | CPT/HCPCS: 32555; 71045 ==

== ENCOUNTER → 2022-07-21 | Outpatient (CLI) | payer MEDICARE | LOC: US 12:52 | PROVIDERS: ATTEND Internal Medicine | DX: J90 Pleural effusion, not elsewhere classified (principal) | CPT/HCPCS: 32555; 71045 ==

== ENCOUNTER → 2022-07-22 | Outpatient (CLI) | payer MEDICARE | LOC: US 12:20 | PROVIDERS: ATTEND Internal Medicine | DX: J90 Pleural effusion, not elsewhere classified (principal) | CPT/HCPCS: 32555; 71045 ==

== ENCOUNTER → 2022-07-28 | Outpatient (CLI) | payer MEDICARE ==
[2022-07-28 13:03] LABS: INR 1.02; PROTHROMBIN TIME 13.6 seconds (11.9-14.5)
[2022-07-28 13:04] LABS: PARTIAL THROMBOPLASTIN TIME 33.2 seconds (23.8-35.5)
== END ==
LOC: US 12:19
PROVIDERS: ATTEND Internal Medicine
DX: J90 Pleural effusion, not elsewhere classified (principal)
CPT/HCPCS: 32555; 36415; 71045; 85014; 85049; 85610; 85730

== ENCOUNTER → 2022-07-30 | Outpatient (CLI) | payer MEDICARE | LOC: US 12:21 | PROVIDERS: ATTEND Internal Medicine | DX: J90 Pleural effusion, not elsewhere classified (principal) | CPT/HCPCS: 32555; 71045; C1729 ==

== ENCOUNTER → 2022-08-04 | Outpatient (CLI) | payer MEDICARE | LOC: US 10:46 | PROVIDERS: ATTEND Internal Medicine | DX: J90 Pleural effusion, not elsewhere classified (principal) | CPT/HCPCS: 32555; 71045 ==

== ENCOUNTER → 2022-08-05 | Outpatient (CLI) | payer MEDICARE | LOC: US 11:53 | PROVIDERS: ATTEND Internal Medicine | DX: J90 Pleural effusion, not elsewhere classified (principal) | CPT/HCPCS: 32555; 71045 ==

== ENCOUNTER → 2022-08-12 | Outpatient (CLI) | payer MEDICARE | LOC: US 12:33 | PROVIDERS: ATTEND Internal Medicine | DX: J90 Pleural effusion, not elsewhere classified (principal) | CPT/HCPCS: 32555; 71045 ==

== ENCOUNTER → 2022-08-14 | Outpatient (CLI) | payer MEDICARE | LOC: US 12:54 | PROVIDERS: ATTEND Internal Medicine | DX: J90 Pleural effusion, not elsewhere classified (principal) | CPT/HCPCS: 32555; 71045 ==

== ENCOUNTER → 2022-08-19 | Outpatient (CLI) | payer MEDICARE | LOC: US 10:04 | PROVIDERS: ATTEND Internal Medicine | DX: J90 Pleural effusion, not elsewhere classified (principal) | CPT/HCPCS: 32555; 71045; C1729 ==

== ENCOUNTER → 2022-08-21 | Outpatient (CLI) | payer MEDICARE | LOC: US 11:40 | PROVIDERS: ATTEND Internal Medicine | DX: J90 Pleural effusion, not elsewhere classified (principal) | CPT/HCPCS: 32555; 71045 ==

== ENCOUNTER → 2022-08-27 | Outpatient (CLI) | payer MEDICARE | LOC: US 11:04 | PROVIDERS: ATTEND Internal Medicine | DX: J90 Pleural effusion, not elsewhere classified (principal) | CPT/HCPCS: 32555; 71045 ==

== ENCOUNTER → 2022-08-28 | Outpatient (CLI) | payer MEDICARE | LOC: US 11:16 | PROVIDERS: ATTEND Internal Medicine | DX: J90 Pleural effusion, not elsewhere classified (principal) | CPT/HCPCS: 32555; 71045 ==

== ENCOUNTER → 2022-09-03 | Outpatient (CLI) | payer MEDICARE ==
[2022-09-03 12:31] LABS: BASOPHILS # (AUTO) 0.1 (0.0-0.1); BASOPHILS % 0.7 % (0.0-1.0); EOSINOPHILS # (AUTO) 0.1 (0.0-0.4); HEMATOCRIT 39.8 % (38.2-49.6); HEMOGLOBIN 13.2 g/dL (14.0-18.0); LYMPHOCYTES # (AUTO) 1.2 (1.0-3.2); LYMPHOCYTES % 16.6 % (18.0-39.1); MEAN CORPUSCULAR HEMOGLOBIN 30.3 pg (28-32); MEAN CORPUSCULAR HGB CONC 33.2 g/dL (31-35); MEAN CORPUSCULAR VOLUME 91.3 fL (81-99); MONOCYTES # (AUTO) 0.8 (0.2-0.8); MONOCYTES % 10.5 % (4.4-11.3); NEUTROPHILS # (AUTO) 5.1 (2.1-6.9); NEUTROPHILS % 71.1 % (38.7-80.0); PLATELET COUNT 245 x10e3/uL (140-360); RED BLOOD COUNT 4.36 x10e6/uL (4.3-5.7); RED CELL DISTRIBUTION WIDTH 14.2 % (11.7-14.4)
[2022-09-03 12:42] LABS: INR 1.03
[2022-09-03 12:43] LABS: PARTIAL THROMBOPLASTIN TIME 31.8 seconds (23.8-35.5)
[2022-09-03 12:46] LABS: ANION GAP 16.5 mmol/L (8-16); CALCIUM 9.1 mg/dL (8.4-10.2); CREATININE, SERUM 1.52 mg/dL (0.72-1.25); POTASSIUM 4.5 mmol/L (3.5-5.1)
== END ==
LOC: US 11:31
PROVIDERS: ATTEND Internal Medicine
DX: J90 Pleural effusion, not elsewhere classified (principal)
CPT/HCPCS: 32555; 36415; 71045; 80048; 85025; 85610; 85730

== ENCOUNTER → 2022-09-04 | Outpatient (CLI) | payer MEDICARE | LOC: US 11:21 | PROVIDERS: ATTEND Internal Medicine | DX: J90 Pleural effusion, not elsewhere classified (principal) | CPT/HCPCS: 32555; 71045 ==

== ENCOUNTER → 2022-09-11 | Outpatient (CLI) | payer MEDICARE | LOC: US 09:06 | PROVIDERS: ATTEND Internal Medicine | DX: J90 Pleural effusion, not elsewhere classified (principal) | CPT/HCPCS: 32555; 71045 ==

== ENCOUNTER → 2022-09-14 | Outpatient (CLI) | payer MEDICARE | LOC: US 09:09 | PROVIDERS: ATTEND Internal Medicine | DX: J90 Pleural effusion, not elsewhere classified (principal) | CPT/HCPCS: 32555; 71045 ==

== ENCOUNTER → 2022-09-17 | Outpatient (CLI) | payer MEDICARE ==
[2022-09-17 13:34] LABS: BODY FLUID APPEARANCE CLOUDY; BODY FLUID COLOR STRAW; BODY FLUID TYPE PLEURAL
[2022-09-17 14:09] LABS: RBC,BODY FLUID 3000 cells/uL; WBC,BODY FLUID 470 cells/uL
[2022-09-17 15:21] LABS: LYMPHOCYTES,BODY FLUID 57 %; MONO/MACROPHG,BODY FLUID 28 %; NEUTROPHILS,BODY FLUID 8 %; OTHER CELLS,BODY FLUID 7 %
== END ==
LOC: US 11:18
PROVIDERS: ATTEND Internal Medicine
DX: J90 Pleural effusion, not elsewhere classified (principal)
CPT/HCPCS: 32555; 36415; 71045; 83615; 84157; 87070; 87205; 88112; 88300; 88305; 89051

== ENCOUNTER → 2022-09-22 | Outpatient (CLI) | payer MEDICARE | LOC: US 13:28 | PROVIDERS: ATTEND Internal Medicine | DX: J90 Pleural effusion, not elsewhere classified (principal) | CPT/HCPCS: 32555; 71045 ==

== ENCOUNTER → 2022-09-24 | Outpatient (CLI) | payer MEDICARE | LOC: US 13:50 | PROVIDERS: ATTEND Internal Medicine | DX: J90 Pleural effusion, not elsewhere classified (principal) | CPT/HCPCS: 32555; 71045; C1729 ==

== ENCOUNTER → 2022-10-01 | Outpatient (CLI) | payer MEDICARE | LOC: US 13:19 | PROVIDERS: ATTEND Internal Medicine | DX: J90 Pleural effusion, not elsewhere classified (principal) | CPT/HCPCS: 32555; 71045 ==

== ENCOUNTER → 2022-10-02 | Outpatient (CLI) | payer MEDICARE | LOC: US 10:25 | PROVIDERS: ATTEND Internal Medicine | DX: J90 Pleural effusion, not elsewhere classified (principal) | CPT/HCPCS: 32555; 71045 ==

== ENCOUNTER → 2022-10-07 | Outpatient (CLI) | payer MEDICARE ==
[2022-10-07 11:56] LABS: HEMOGLOBIN 12.5 g/dL (14.0-18.0)
[2022-10-07 12:08] LABS: INR 1.03
[2022-10-07 12:09] LABS: PARTIAL THROMBOPLASTIN TIME 33.5 seconds (23.8-35.5)
== END ==
LOC: US 11:10
PROVIDERS: ATTEND Internal Medicine
DX: J90 Pleural effusion, not elsewhere classified (principal)
CPT/HCPCS: 32555; 36415; 71045; 85014; 85049; 85610; 85730

== ENCOUNTER → 2022-10-08 | Outpatient (CLI) | payer MEDICARE | LOC: US 11:13 | PROVIDERS: ATTEND Internal Medicine | DX: J90 Pleural effusion, not elsewhere classified (principal) | CPT/HCPCS: 32555; 71045 ==

== ENCOUNTER → 2022-10-15 | Outpatient (CLI) | payer MEDICARE | LOC: US 13:05 | PROVIDERS: ATTEND Internal Medicine | DX: J90 Pleural effusion, not elsewhere classified (principal) | CPT/HCPCS: 32555; 71045 ==

== ENCOUNTER → 2022-10-20 | Outpatient (CLI) | payer MEDICARE | LOC: US 14:23 | PROVIDERS: ATTEND Internal Medicine | DX: J90 Pleural effusion, not elsewhere classified (principal) | CPT/HCPCS: 32555; 71045 ==

== ENCOUNTER → 2022-10-21 | Outpatient (CLI) | payer MEDICARE | LOC: US 14:19 | PROVIDERS: ATTEND Internal Medicine | DX: J90 Pleural effusion, not elsewhere classified (principal) | CPT/HCPCS: 32555; 71045 ==

== ENCOUNTER → 2022-10-28 | Outpatient (CLI) | payer MEDICARE | LOC: US 13:27 | PROVIDERS: ATTEND Internal Medicine Pulmonary Disease | DX: I50.22 Chronic systolic (congestive) heart failure (principal) | CPT/HCPCS: 32555; 71045 ==

== ENCOUNTER → 2022-10-29 | Outpatient (CLI) | payer MEDICARE | LOC: US 11:35 | PROVIDERS: ATTEND Internal Medicine Pulmonary Disease | DX: I50.22 Chronic systolic (congestive) heart failure (principal) | CPT/HCPCS: 32555; 71045; C1729 ==

== ENCOUNTER → 2022-11-04 | Outpatient (CLI) | payer MEDICARE | LOC: US 12:22 | PROVIDERS: ATTEND Internal Medicine Pulmonary Disease | DX: I50.22 Chronic systolic (congestive) heart failure (principal) | CPT/HCPCS: 32555; 71045 ==

== ENCOUNTER → 2022-11-05 | Outpatient (CLI) | payer MEDICARE | LOC: US 13:21 | PROVIDERS: ATTEND Internal Medicine Pulmonary Disease | DX: I50.22 Chronic systolic (congestive) heart failure (principal) | CPT/HCPCS: 32555; 71045 ==

== ENCOUNTER → 2022-11-11 | Outpatient (CLI) | payer MEDICARE ==
[2022-11-11 15:00] LABS: BASOPHILS # (AUTO) 0.1 (0.0-0.1); BASOPHILS % 0.7 % (0.0-1.0); EOSINOPHILS # (AUTO) 0.1 (0.0-0.4); EOSINOPHILS % 1.1 % (0.0-6.0); HEMATOCRIT 35.2 % (38.2-49.6); LYMPHOCYTES # (AUTO) 1.2 (1.0-3.2); LYMPHOCYTES % 16.8 % (18.0-39.1); MEAN CORPUSCULAR HEMOGLOBIN 31.2 pg (28-32); MEAN CORPUSCULAR HGB CONC 34.1 g/dL (31-35); MEAN CORPUSCULAR VOLUME 91.4 fL (81-99); MONOCYTES # (AUTO) 0.9 (0.2-0.8); MONOCYTES % 12.3 % (4.4-11.3); NEUTROPHILS # (AUTO) 5.1 (2.1-6.9); NEUTROPHILS % 68.8 % (38.7-80.0); PLATELET COUNT 264 x10e3/uL (140-360); RED BLOOD COUNT 3.85 x10e6/uL (4.3-5.7); RED CELL DISTRIBUTION WIDTH 13.3 % (11.7-14.4)
[2022-11-11 15:05] LABS: INR 0.93; PARTIAL THROMBOPLASTIN TIME 25.2 seconds (23.8-35.5)
== END ==
LOC: US 14:12
PROVIDERS: ATTEND Internal Medicine Pulmonary Disease
DX: I50.22 Chronic systolic (congestive) heart failure (principal)
CPT/HCPCS: 32555; 36415; 71045; 85025; 85610; 85730

== ENCOUNTER → 2022-11-13 | Outpatient (CLI) | payer MEDICARE | LOC: US 10:17 | PROVIDERS: ATTEND Internal Medicine Pulmonary Disease | DX: I50.22 Chronic systolic (congestive) heart failure (principal) | CPT/HCPCS: 32555; 71045 ==

== ENCOUNTER → 2022-11-18 | Outpatient (CLI) | payer MEDICARE | LOC: US 13:30 | PROVIDERS: ATTEND Internal Medicine Pulmonary Disease | DX: I50.22 Chronic systolic (congestive) heart failure (principal) | CPT/HCPCS: 32555; 71045 ==

== ENCOUNTER → 2022-11-19 | Outpatient (CLI) | payer MEDICARE | LOC: US 11:09 | PROVIDERS: ATTEND Internal Medicine Pulmonary Disease | DX: I50.22 Chronic systolic (congestive) heart failure (principal) | CPT/HCPCS: 32555; 71045 ==

== ENCOUNTER → 2022-11-25 | Outpatient (CLI) | payer MEDICARE | LOC: US 13:12 | PROVIDERS: ATTEND Internal Medicine Pulmonary Disease | DX: I11.0 Hypertensive heart disease with heart failure (principal); I50.22 Chronic systolic (congestive) heart failure | CPT/HCPCS: 32555; 71045 ==

== ENCOUNTER → 2022-11-27 | Outpatient (CLI) | payer MEDICARE | LOC: US 12:27 | PROVIDERS: ATTEND Internal Medicine Pulmonary Disease | DX: I50.22 Chronic systolic (congestive) heart failure (principal); J90 Pleural effusion, not elsewhere classified | CPT/HCPCS: 32555; 71045 ==

== ENCOUNTER → 2022-12-10 | Outpatient (CLI) | payer MEDICARE | LOC: US 12:17 | PROVIDERS: ATTEND Internal Medicine Pulmonary Disease | DX: I50.22 Chronic systolic (congestive) heart failure (principal) | CPT/HCPCS: 32555; 71045 ==